=== PATIENT | female | born 1950 | race Caucasian/White ===

== ENCOUNTER 2016-09-28 10:58 | Emergency (ER) | payer MEDICARE, BC ==
[2016-09-28 11:16] VITALS: RESP 18
[2016-09-28] MEDS ORDERED: SODIUM CHLORIDE 0.9% 500 ML IV STA (11:55)
--- NOTE | 2016-09-28 12:08 | ED ---
Abdominal Pain HPI - General Chief Complaint: Abdominal Pain Stated Complaint: left side pain Time Seen by Provider: 09/28/16 11:55 Source: patient, RN notes reviewed Mode of arrival: ambulatory Limitations: no limitations - History of Present Illness Initial Comments: 66-year-old female presented emergency department for left flank pain, left back pain. Patient states that she got up in the middle the night and felt a pop in her back. She states it felt more internal than surface leg. She states she has pain if she twists the right and she if she bends forward or back. Patient denies any bowel bladder incontinence or retention. Denies any saddle anesthesias. Patient has no diarrhea no constipation denies any dysuria or hematuria. Patient states that she has a history of diverticulitis though she has no symptoms consistent with this at this time. Patient denies any fever or chills. No chest pain or shortness breath - Related Data Home Medications Medication Instructions Recorded Confirmed ALPRAZolam [Xanax] 0.5 mg PO TID PRN 09/28/16 09/28/16 Albuterol Sulfate [Proventil Hfa] 1 - 2 puff INHALATION RT-Q6H PRN 09/28/16 Celecoxib [CeleBREX] 200 mg PO DAILY 09/28/16 09/28/16 Ergocalciferol [Vitamin D2] 50,000 unit PO TU 09/28/16 09/28/16 Fluticasone/Salmeterol [Advair 1 puff PO RT-BID 09/28/16 09/28/16 500-50 Diskus] Furosemide [Lasix] 40 mg PO DAILY PRN 09/28/16 09/28/16 Montelukast Sodium [Singulair] 10 mg PO DAILY 09/28/16 09/28/16 Morphine Sulfate ER [Ms Contin 30 mg PO DAILY PRN 09/28/16 09/28/16 30Mg] Omeprazole [PriLOSEC] 40 mg PO BID 09/28/16 09/28/16 Rosuvastatin Calcium [Crestor] 40 mg PO DAILY 09/28/16 09/28/16 Tiotropium 18 Mcg/Puff [Spiriva] 1 cap INHALATION RT-DAILY 09/28/16 09/28/16 amLODIPine BESYLATE/BENAZEPRIL 1 cap PO DAILY 09/28/16 09/28/16 [Lotrel 10-20 mg Capsule] Allergies Allergy/AdvReac Type Severity Reaction Status Date / Time hydrocodone [From [place]] Allergy Dyspnea Verified 09/28/16 12:41 oxycodone [From OxyContin] Allergy Rash/Hives Verified 09/28/16 12:41 dust Allergy Unknown Uncoded 09/28/16 11:17 Review of Systems ROS Statement: Those systems with pertinent positive or pertinent negative responses have been documented in the HPI. ROS Other: All systems not noted in ROS Statement are negative. Past Medical History Past Medical History: COPD, Osteoarthritis (OA) Additional Past Medical History / Comment(s): diverticulitis chronic back pain History of Any Multi-Drug Resistant Organisms: None Reported Past Surgical History: Orthopedic Surgery, Tonsillectomy Additional Past Surgical History / Comment(s): knees Past Psychological History: No Psychological Hx Reported Smoking Status: Current every day smoker Past Alcohol Use History: None Reported Past Drug Use History: None Reported General Exam Limitations: no limitations General appearance: alert, in no apparent distress Head exam: Present: atraumatic, normocephalic, normal inspection Respiratory exam: Present: normal lung sounds bilaterally. Absent: respiratory distress, wheezes, rales, rhonchi, stridor Cardiovascular Exam: Present: regular rate, normal rhythm, normal heart sounds. Absent: systolic murmur, diastolic murmur, rubs, gallop, clicks GI/Abdominal exam: Present: soft, normal bowel sounds. Absent: distended, tenderness, guarding, rebound, rigid Back exam: Present: full ROM, paraspinal tenderness (Lower thoracic/lumbar). Absent: tenderness, CVA tenderness (R), CVA tenderness (L), vertebral tenderness Neurological exam: Present: alert, oriented X3, CN II-XII intact, reflexes normal. Absent: motor sensory deficit Skin exam: Present: warm, dry, intact, normal color. Absent: rash Course Vital Signs 09/28/16 09/28/16 11:13 14:00 Temperature 98.0 F Pulse Rate 94 82 Respiratory 18 18 Rate Blood Pressure 133/62 150/66 O2 Sat by Pulse 95 94 L Oximetry Medical Decision Making - Medical Decision Making 66-year-old female presented for left sided back pain. Patient CT does show large hiatal hernia the no evidence of acute diverticulitis. His pain is most likely related to muscle skeletal pain at this time it is worse with movement. Patient will be discharged at this time with close follow-up return parameters were discussed. - Lab Data Result diagrams: 09/28/16 12:00 09/28/16 12:00 Lab Results 09/28/16 09/28/16 09/28/16 Range/Units 12:00 12:00 14:20 WBC 14.4 H (3.8-10.6) k/uL RBC 4.95 (3.80-5.40) m/uL Hgb 13.6 (11.4-16.0) gm/dL Hct 42.7 (34.0-46.0) % MCV 86.3 (80.0-100.0) fL MCH 27.5 (25.0-35.0) pg MCHC 31.9 (31.0-37.0) g/dL RDW 14.7 (11.5-15.5) % Plt Count 355 (150-450) k/uL Neutrophils % 90 % Lymphocytes % 7 % Monocytes % 2 % Eosinophils % 0 % Basophils % 0 % Neutrophils # 12.9 H (1.3-7.7) k/uL Lymphocytes # 1.0 (1.0-4.8) k/uL Monocytes # 0.3 (0-1.0) k/uL Eosinophils # 0.1 (0-0.7) k/uL Basophils # 0.0 (0-0.2) k/uL Sodium 141 (137-145) mmol/L Potassium 3.4 L (3.5-5.1) mmol/L Chloride 101 (98-107) mmol/L Carbon Dioxide 26 (22-30) mmol/L Anion Gap 14 mmol/L BUN 17 (7-17) mg/dL Creatinine 1.10 H (0.52-1.04) mg/dL Est GFR (MDRD) Af Amer >60 (>60 ml/min/1.73 sqM) Est GFR (MDRD) Non-Af 50 (>60 ml/min/1.73 sqM) Glucose 133 H (74-99) mg/dL Calcium 9.1 (8.4-10.2) mg/dL Total Bilirubin 0.4 (0.2-1.3) mg/dL AST 19 (14-36) U/L ALT 34 (9-52) U/L Alkaline Phosphatase 142 H (38-126) U/L Total Protein 6.4 (6.3-8.2) g/dL Albumin 3.8 (3.5-5.0) g/dL Amylase 32 (30-110) U/L Lipase 29 (23-300) U/L Urine Color Yellow Urine Appearance Clear (Clear) Urine pH 6.0 (5.0-8.0) Ur Specific [place] 1.007 (1.001-1.035) Urine Protein Trace H (Negative) Urine Glucose (UA) Negative (Negative) Urine Ketones Negative (Negative) Urine Blood Trace H (Negative) Urine Nitrite Negative (Negative) Urine Bilirubin Negative (Negative) Urine Urobilinogen <2.0 (<2.0) mg/dL Ur Leukocyte Esterase Small H (Negative) Urine RBC 1 (0-5) /hpf Urine WBC 2 (0-5) /hpf Ur Squamous Epith Cells 1 (0-4) /hpf Urine Mucus Rare H (None) /hpf Disposition Clinical Impression: Back pain, Hiatal hernia Disposition: HOME SELF-CARE Condition: Stable Instructions: Back Pain (ED) Additional Instructions: Please return to the Emergency Department if symptoms worsen or any other concerns. Referrals: Hay Lipscomb DO [Primary Care Provider] - 1-2 days Time of Disposition: 15:16
[2016-09-28 12:34] LABS: Basophils % (A) 0 %; CH 27.7; CHCM 32.2; Eosinophils # (A) 0.1 k/uL (0-0.7); Eosinophils % (A) 0 %; HCT 42.7 % (34.0-46.0); HDW 2.36; HGB 13.6 gm/dL (11.4-16.0); Luc # (Auto) 0.06; Luc % (Auto) 0; Lymphocytes % (A) 7 %; MCH 27.5 pg (25.0-35.0); MCHC 31.9 g/dL (31.0-37.0); MCV 86.3 fL (80.0-100.0); Mean Platelet Volume 6.6; Monocytes # (A) 0.3 k/uL (0-1.0); Monocytes % (A) 2 %; Neutrophils # (A) 12.9 k/uL (1.3-7.7); Neutrophils % (A) 90 %; RBC 4.95 m/uL (3.80-5.40); RDW 14.7 % (11.5-15.5); WBC 14.4 k/uL (3.8-10.6); WBC (Perox) 13.86
[2016-09-28 12:44] LABS: ALT 34 U/L (9-52); AST 19 U/L (14-36); Alkaline Phosphatase 142 U/L (38-126); Amylase 32 U/L (30-110); Anion Gap 14 mmol/L; Blood Urea Nitrogen 17 mg/dL (7-17); Calcium 9.1 mg/dL (8.4-10.2); Carbon Dioxide 26 mmol/L (22-30); Chloride 101 mmol/L (98-107); Glucose 133 mg/dL (74-99); Non-African American GFR(MDRD) 50 (>60 ml/min/1.73 sqM); Potassium 3.4 mmol/L (3.5-5.1); Sodium 141 mmol/L (137-145); Total Bilirubin 0.4 mg/dL (0.2-1.3); Total Protein 6.4 g/dL (6.3-8.2)
[2016-09-28] MEDS ORDERED: RX INFO: IV CONTRAST WAS GIVEN 1 EACH MISC MISCELLANE PRN (14:05)
[2016-09-28 14:53] LABS: Appearance,Urine Clear (Clear); Bilirubin,Urine Negative (Negative); Glucose,Urine (UA) Negative (Negative); Ketones,Urine Negative (Negative); Leukocyte Esterase,Urine Small (Negative); Mucus,Urine Rare /hpf; Nitrite,Urine Negative (Negative); Particle Count 1453; Protein,Urine Trace (Negative); RBC,Urine 1 /hpf (0-5); Specific Gravity,Urine 1.007 (1.001-1.035); Squamous Epithelial Cell,Urine 1 /hpf (0-4); UA Billing (MACRO vs. MICRO) MICRO; Urobilinogen,Urine <2.0 mg/dL (<2.0); WBC,Urine 2 /hpf (0-5)
--- NOTE | 2016-09-28 15:08 | CT ---
EXAMINATION TYPE: CT abdomen pelvis w con DATE OF EXAM: 09/28/2016 COMPARISON: NONE HISTORY: Left sided pain, diverticulitis CT DLP: 1662.00 mGycm Automated exposure control for dose reduction was used. TECHNIQUE: Helical acquisition of images was performed from the lung bases through the pelvis. CONTRAST: Performed without Oral Contrast and with IV Contrast, patient injected with 100 ml mL of Omnipaque 30 0. FINDINGS: LUNG BASES: No significant abnormality is appreciated. LIVER/GB: There is a 10 mm hypodense focus in the medial right hepatic lobe which is most consistent with a cyst. A similar tiny hypodense focus is noted in the periphery of the left hepatic lobe. The g allbladder is unremarkable. There is a large sliding-type hiatal hernia. PANCREAS: No significant abnormality is seen. SPLEEN: No significant abnormality is seen. ADRENALS: Mild thickening is noted from the lateral limb of the left adrenal gland is of doubtful sig nificance. KIDNEYS: No significant abnormality is seen. No free intraperitoneal air is identified. There is moderate diastases rectus with a small fat filled umbilical hernia. RETROPERITONEAL ADENOPATHY: None visualized REPRODUCTIVE ORGANS: Unremarkable. URINARY BLADDER: No significant abnormality is seen. PELVIC ADENOPATHY: None visualized. OSSEOUS STRUCTURES: No significant abnormality is seen. BOWEL: There is no significant diverticulosis. No findings to indicate acute diverticulitis. IMPRESSION: 1. NO EVIDENCE OF ACUTE DIVERTICULITIS. 2. NO ACUTE OR ABNORMALITY IDENTIFIED. 3. LARGE HIATAL HERNIA.
[2016-09-28 15:35] VITALS: BP 136/60; PULSE 86; TEMP 98.1
== END 2016-09-28 15:40 | disposition home or self-care (01) ==
LOC: EC 10:58
DX: K44.9 Diaphragmatic hernia without obstruction or gangrene (principal); M54.9 Dorsalgia, unspecified; J44.9 Chronic obstructive pulmonary disease, unspecified; M19.90 Unspecified osteoarthritis, unspecified site; F17.200 Nicotine dependence, unspecified, uncomplicated; Z79.1 Long term (current) use of non-steroidal anti-inflammatories (NSAID); Z79.899 Other long term (current) drug therapy; Z88.5 Allergy status to narcotic agent; Z91.09 Other allergy status, other than to drugs and biological substances; Z87.19 Personal history of other diseases of the digestive system
CPT/HCPCS: 36415; 80053; 82150; 83690; 85025; 81001; 74177; 99284; 96360; 96361 ×2; Q9967

== ENCOUNTER 2024-01-14 05:50 | Inpatient (IN) | payer BC, MEDICARE ==
[2024-01-14] MEDS: IPRATROPIUM-ALBUTEROL 3 ML NEB INHALATION STA (06:25)
[2024-01-14] MEDS: methylPREDNISolone SOD SUCCI 125 MG/2 ML VIAL IV STA (06:41)
--- NOTE | 2024-01-14 06:41 | ED ---
Weakness HPI - General Chief complaint: Weakness Stated complaint: Difficulty Breathing, Exposure Time Seen by Provider: 01/14/24 05:59 Source: patient, EMS, RN notes reviewed Mode of arrival: EMS Limitations: no limitations - History of Present Illness Initial comments: This is a 73 year old female who presents to the emergency department for shortness of breath and weakness. Patient has been living in her car in her own driveway for the last couple of months. States that she is too weak and "lazy" to get out and go into her house. She subsequently remains in her car and only gets out to go to the restroom in her yard. She has a friend bring her food. It does not appear that she has been showering. She has a history of COPD and states that over the last several days her breathing has gotten much worse. States that she is a heavy smoker on top of the COPD. Does not do nebulizer treatments and only uses an inhaler as needed. Patient states that her largest reason for calling EMS today was because her breathing had gotten worse. Denies any chest pain. MD Complaint: generalized weakness - Related Data Home Medications Medication Instructions Recorded Confirmed No Known Home Medications 01/14/24 01/14/24 Allergies Allergy/AdvReac Type Severity Reaction Status Date / Time hydrocodone [From [place]] Allergy Dyspnea/benji Verified 01/14/24 07:33 sea oxycodone [From OxyContin] Allergy Rash/Hives Verified 01/14/24 07:33 dust Allergy Unknown Uncoded 01/14/24 05:53 Review of Systems ROS Statement: Those systems with pertinent positive or pertinent negative responses have been documented in the HPI. ROS Other: All systems not noted in ROS Statement are negative. Past Medical History Past Medical History: COPD, Osteoarthritis (OA) Additional Past Medical History / Comment(s): diverticulitis chronic back pain History of Any Multi-Drug Resistant Organisms: None Reported Past Surgical History: Orthopedic Surgery, Tonsillectomy Additional Past Surgical History / Comment(s): knees Past Psychological History: No Psychological Hx Reported Smoking Status: Current every day smoker Past Alcohol Use History: None Reported Past Drug Use History: None Reported General Exam Limitations: no limitations General appearance: alert, in no apparent distress Head exam: Present: atraumatic, normocephalic, normal inspection Respiratory exam: Present: wheezes, decreased breath sounds, prolonged expiratory Cardiovascular Exam: Present: regular rate, normal rhythm, normal heart sounds. Absent: systolic murmur, diastolic murmur, rubs, gallop, clicks Neurological exam: Present: alert, oriented X3, CN II-XII intact Psychiatric exam: Present: normal affect, normal mood Course Vital Signs 01/14/24 01/14/24 01/14/24 06:26 06:40 06:42 Temperature Pulse Rate 96 100 57 L Respiratory 20 Rate Blood Pressure 115/91 O2 Sat by Pulse 100 Oximetry 01/14/24 08:29 Temperature 97.5 F L Pulse Rate 75 Respiratory 17 Rate Blood Pressure 123/77 O2 Sat by Pulse 96 Oximetry Medical Decision Making - Medical Decision Making This is a 73-year-old female who presents to the emergency department for shortness of breath and weakness. Was pt. sent in by a medical professional or institution? @ -No Did you speak to anyone other than the patient for history? @ -No Did you review nursing and triage notes? @ -Yes, and I agree, it is accurate with regards to the patient's symptoms. Were old charts reviewed? @ -No Differential Diagnosis? @ -Differential Dyspnea: Coronary syndrome, arrhythmia, tamponade, asthma, COPD, pulmonary embolism, pneumonia, pneumothorax, pulmonary effusion, anaphylaxis, diabetic ketoacidosis, flailed chest, pulmonary contusion, diaphragmatic rupture, anemia, neuromuscular, this is not meant to be an all-inclusive list. EKG interpreted by me (3pts min.)? @ -EKG interpreted by me demonstrating the following: Possible atrial fibrillation. Ventricular rate 93 bpm, QRS duration 76 ms, QTc 475 ms. X-rays interpreted by me (1pt min.)? @ -Chest x-ray obtained. My interpretation identifies bilateral pleural effusions. CT interpreted by me (1pt min.)? @ -CTA of the chest obtained. My interpretation identifies bilateral pleural effusions. U/S interpreted by me (1pt. min.)? @ -Not obtained What testing was considered but not performed? (CT, X-rays, U/S, labs)? Why? @ -None What meds were considered but not given? Why? @ -None Did you discuss the management of the patient with other professionals? @ -Yes, Dr. Call, who accepts the patient for admission. Did you reconcile home meds? @ -Yes - patient takes no medication Was smoking cessation discussed for >3mins.? @ -I discussed smoking cessation for greater than 3 minutes. The risk of smoking were discussed with the patient including but not limited to risks of cancer, stroke, coronary artery disease and COPD. Also discussed with patient were multiple methods of quitting smoking. Lastly we discussed the financial cost of smoking. Was critical care preformed (if so, how long)? @ -Yes, >35 minutes Were there social determinants of health that impacted care today? How? (Homelessness, low income, unemployed, alcoholism, drug addiction, transportation, low edu. Level, literacy, decrease access to med. care, [facility], rehab)? @ -No Was there de-escalation of care discussed even if they declined? (Discuss DNR or withdrawal of care, Hospice)? @ -No What co-morbidities impacted this encounter? (DM, HTN, Smoking, COPD, CAD, Cancer, CVA, Hep., AIDS, mental health diagnosis, sleep apnea, morbid obesity)? @ -COPD, smoking Was patient admitted / discharged? @ -Admitted. Lab work demonstrates leukocytosis with a white blood cell count of 26.3. She has mild hypokalemia with a potassium of 3.3. There is also hypoglycemia with a glucose of 70. Lactic acid elevated at 2.8. BNP elevated at 24,800. D-dimer elevated at 4.23. COVID, influenza, and RSV testing negative. Urinalysis is questionably suggestive of infection and urine was sent for culture. Chest x-ray demonstrates moderate right and small left pleural effusions with adjacent atelectasis and/or consolidation. CTA of the chest demonstrates a single tiny segmental branch PE located in the right lower lobe. No heart strain is identified. CHF with pulmonary vascular congestion is identified with moderate right and small left pleural effusions. There is also collapse of the right lower lobe adjacent to the right pleural effusion. Workup at this point suggests a multitude of issues including CHF exacerbation, COPD exacerbation, and right lower lobe PE. Based on the leukocytosis there could be an underlying pneumonia as well. 40 mg of IV Lasix administered. She was given a DuoNeb breathing treatment, 1 g of magnesium sulfate, and a loading dose of 125 mg Solu-Medrol. 40 mEq of K-Dur given for the hypokalemia. She was started on high intensity heparin protocol for the PE. Blood and sputum cultures obtained and she was started on the pneumonia protocol as well with azithromycin and ceftriaxone. Echocardiogram ordered for further evaluation of the CHF and for the PE. Consult placed for pulmonology and cardiology. Case discussed with ED attending Dr. Menezes. Of note, patient does not take any medications or follow-up with any medical providers. 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 Undiagnosed new problem with uncertain prognosis? @ -None Drug Therapy requiring intensive monitoring for toxicity (Heparin, Nitro, Insulin, Cardizem)? @ -Heparin Were any procedures done? @ -None Diagnosis/symptom? @ -CHF exacerbation, COPD exacerbation Acute, or Chronic, or Acute on Chronic? @ -Acute on chronic Uncomplicated (without systemic symptoms) or Complicated (systemic symptoms)? @ -Complicated Side effects of treatment? @ -None Exacerbation, Progression, or Severe Exacerbation] @ -Severe exacerbation Poses a threat to life or bodily function? @ -Yes, both can lead to . Diagnosis/symptom? @ -Right lower lobe PE Acute, or Chronic, or Acute on Chronic? @ -Acute Uncomplicated (without systemic symptoms) or Complicated (systemic symptoms)? @ -Complicated Side effects of treatment? @ -None Exacerbation, Progression, or Severe Exacerbation] @ -Not applicable Poses a threat to life or bodily function? @ -Yes, can lead to - Lab Data Result diagrams: 01/14/24 06:38 01/14/24 06:38 Lab Results 01/14/24 01/14/24 01/14/24 Range/Units 06:38 06:38 06:38 WBC 26.3 H (3.8-10.6) k/uL RBC 4.71 (3.80-5.40) m/uL Hgb 12.4 (11.4-16.0) gm/dL Hct 39.7 (34.0-46.0) % MCV 84.2 (80.0-100.0) fL MCH 26.2 (25.0-35.0) pg MCHC 31.2 (31.0-37.0) g/dL RDW 15.5 (11.5-15.5) % Plt Count 599 H (150-450) k/uL MPV 7.2 Neutrophils % 90 % Lymphocytes % 5 % Monocytes % 4 % Eosinophils % 0 % Basophils % 0 % Neutrophils # 23.8 H (1.3-7.7) k/uL Lymphocytes # 1.3 (1.0-4.8) k/uL Monocytes # 1.0 (0-1.0) k/uL Eosinophils # 0.1 (0-0.7) k/uL Basophils # 0.1 (0-0.2) k/uL Hypochromasia Moderate PT 11.7 (10.0-12.5) sec INR 1.1 (<1.2) APTT 24.0 (22.0-30.0) sec D-Dimer 4.23 H (<0.60) mg/L FEU Sodium 143 (137-145) mmol/L Potassium 3.3 L (3.5-5.1) mmol/L Chloride 103 (98-107) mmol/L Carbon Dioxide 33 H (22-30) mmol/L Anion Gap 7 mmol/L BUN 13 (7-17) mg/dL Creatinine 0.97 (0.52-1.04) mg/dL Est GFR (CKD-EPI)AfAm 68 (>60 ml/min/1.73 sqM) Est GFR (CKD-EPI)NonAf 59 (>60 ml/min/1.73 sqM) Glucose 70 L (74-99) mg/dL Lactic Ac Sepsis Rflx Plasma Lactic Acid [place] (0.7-2.0) mmol/L Calcium 8.5 (8.4-10.2) mg/dL Magnesium 1.7 (1.6-2.3) mg/dL Total Bilirubin 0.4 (0.2-1.3) mg/dL AST 23 (14-36) U/L ALT 9 (4-34) U/L Alkaline Phosphatase 142 H (38-126) U/L Creatine Kinase 95 (30-135) U/L Troponin I (0.000-0.034) ng/mL C-Reactive Protein (<1.0) mg/dL NT-Pro-B Natriuret Pep 63147 pg/mL Total Protein 6.0 L (6.3-8.2) g/dL Albumin 3.1 L (3.5-5.0) g/dL Urine Color Urine Appearance (Clear) Urine pH (5.0-8.0) Ur Specific [place] (1.001-1.035) Urine Protein (Negative) Urine Glucose (UA) (Negative) Urine Ketones (Negative) Urine Blood (Negative) Urine Nitrite (Negative) Urine Bilirubin (Negative) Urine Urobilinogen (<2.0) mg/dL Ur Leukocyte Esterase (Negative) Urine RBC (0-5) /hpf Urine WBC (0-5) /hpf Ur Squamous Epith Cells (0-4) /hpf Urine Bacteria (None) /hpf Urine Mucus (None) /hpf Influenza Type A (PCR) (Not Detectd) Influenza Type B (PCR) (Not Detectd) RSV (PCR) (Not Detectd) SARS-CoV-2 (PCR) (Not Detectd) 01/14/24 01/14/24 01/14/24 Range/Units 06:38 06:38 06:51 WBC (3.8-10.6) k/uL RBC (3.80-5.40) m/uL Hgb (11.4-16.0) gm/dL Hct (34.0-46.0) % MCV (80.0-100.0) fL MCH (25.0-35.0) pg MCHC (31.0-37.0) g/dL RDW (11.5-15.5) % Plt Count (150-450) k/uL MPV Neutrophils % % Lymphocytes % % Monocytes % % Eosinophils % % Basophils % % Neutrophils # (1.3-7.7) k/uL Lymphocytes # (1.0-4.8) k/uL Monocytes # (0-1.0) k/uL Eosinophils # (0-0.7) k/uL Basophils # (0-0.2) k/uL Hypochromasia PT (10.0-12.5) sec INR (<1.2) APTT (22.0-30.0) sec D-Dimer (<0.60) mg/L FEU Sodium (137-145) mmol/L Potassium (3.5-5.1) mmol/L Chloride (98-107) mmol/L Carbon Dioxide (22-30) mmol/L Anion Gap mmol/L BUN (7-17) mg/dL Creatinine (0.52-1.04) mg/dL Est GFR (CKD-EPI)AfAm (>60 ml/min/1.73 sqM) Est GFR (CKD-EPI)NonAf (>60 ml/min/1.73 sqM) Glucose (74-99) mg/dL Lactic Ac Sepsis Rflx Plasma Lactic Acid [place] 2.8 H* (0.7-2.0) mmol/L Calcium (8.4-10.2) mg/dL Magnesium (1.6-2.3) mg/dL Total Bilirubin (0.2-1.3) mg/dL AST (14-36) U/L ALT (4-34) U/L Alkaline Phosphatase (38-126) U/L Creatine Kinase (30-135) U/L Troponin I 0.028 (0.000-0.034) ng/mL C-Reactive Protein (<1.0) mg/dL NT-Pro-B Natriuret Pep pg/mL Total Protein (6.3-8.2) g/dL Albumin (3.5-5.0) g/dL Urine Color Urine Appearance (Clear) Urine pH (5.0-8.0) Ur Specific [place] (1.001-1.035) Urine Protein (Negative) Urine Glucose (UA) (Negative) Urine Ketones (Negative) Urine Blood (Negative) Urine Nitrite (Negative) Urine Bilirubin (Negative) Urine Urobilinogen (<2.0) mg/dL Ur Leukocyte Esterase (Negative) Urine RBC (0-5) /hpf Urine WBC (0-5) /hpf Ur Squamous Epith Cells (0-4) /hpf Urine Bacteria (None) /hpf Urine Mucus (None) /hpf Influenza Type A (PCR) Not Detected (Not Detectd) Influenza Type B (PCR) Not Detected (Not Detectd) RSV (PCR) Not Detected (Not Detectd) SARS-CoV-2 (PCR) Not Detected (Not Detectd) 01/14/24 01/14/24 01/14/24 Range/Units 07:20 08:15 08:15 WBC (3.8-10.6) k/uL RBC (3.80-5.40) m/uL Hgb (11.4-16.0) gm/dL Hct (34.0-46.0) % MCV (80.0-100.0) fL MCH (25.0-35.0) pg MCHC (31.0-37.0) g/dL RDW (11.5-15.5) % Plt Count (150-450) k/uL MPV Neutrophils % % Lymphocytes % % Monocytes % % Eosinophils % % Basophils % % Neutrophils # (1.3-7.7) k/uL Lymphocytes # (1.0-4.8) k/uL Monocytes # (0-1.0) k/uL Eosinophils # (0-0.7) k/uL Basophils # (0-0.2) k/uL Hypochromasia PT (10.0-12.5) sec INR (<1.2) APTT (22.0-30.0) sec D-Dimer (<0.60) mg/L FEU Sodium (137-145) mmol/L Potassium (3.5-5.1) mmol/L Chloride (98-107) mmol/L Carbon Dioxide (22-30) mmol/L Anion Gap mmol/L BUN (7-17) mg/dL Creatinine (0.52-1.04) mg/dL Est GFR (CKD-EPI)AfAm (>60 ml/min/1.73 sqM) Est GFR (CKD-EPI)NonAf (>60 ml/min/1.73 sqM) Glucose (74-99) mg/dL Lactic Ac Sepsis Rflx Y Plasma Lactic Acid [place] (0.7-2.0) mmol/L Calcium (8.4-10.2) mg/dL Magnesium (1.6-2.3) mg/dL Total Bilirubin (0.2-1.3) mg/dL AST (14-36) U/L ALT (4-34) U/L Alkaline Phosphatase (38-126) U/L Creatine Kinase (30-135) U/L Troponin I (0.000-0.034) ng/mL C-Reactive Protein 2.0 H (<1.0) mg/dL NT-Pro-B Natriuret Pep pg/mL Total Protein (6.3-8.2) g/dL Albumin (3.5-5.0) g/dL Urine Color Colorless Urine Appearance Cloudy H (Clear) Urine pH 6.5 (5.0-8.0) Ur Specific [place] 1.014 (1.001-1.035) Urine Protein Trace H (Negative) Urine Glucose (UA) Negative (Negative) Urine Ketones Negative (Negative) Urine Blood Small H (Negative) Urine Nitrite Negative (Negative) Urine Bilirubin Negative (Negative) Urine Urobilinogen <2.0 (<2.0) mg/dL Ur Leukocyte Esterase Large H (Negative) Urine RBC 5 (0-5) /hpf Urine WBC 17 H (0-5) /hpf Ur Squamous Epith Cells <1 (0-4) /hpf Urine Bacteria Rare H (None) /hpf Urine Mucus Rare H (None) /hpf Influenza Type A (PCR) (Not Detectd) Influenza Type B (PCR) (Not Detectd) RSV (PCR) (Not Detectd) SARS-CoV-2 (PCR) (Not Detectd) - Radiology Data Radiology results: report reviewed, image reviewed Critical Care Time Critical Care Time: Yes Critical Care Time: >35 minutes Disposition Clinical Impression: COPD exacerbation, CHF exacerbation, Pulmonary embolism on right, Nicotine dependence Disposition: ADMITTED IP TO THIS HOSP Referrals: None,Stated [Primary Care Provider] - 1-2 days
[2024-01-14] MEDS: MAGNESIUM SULFATE-D5W PMX 1 GM in DEXTROSE/WATER 1 100ML.BAG IVPB ONE (06:44)
[2024-01-14] MEDS: SODIUM CHLORIDE 0.9% 1,000 ML IV STA (06:48)
[2024-01-14 07:03] LABS: Basophils # (A) 0.1 k/uL (0-0.2); Basophils % (A) 0 %; Eosinophils # (A) 0.1 k/uL (0-0.7); Eosinophils % (A) 0 %; HCT 39.7 % (34.0-46.0); HGB 12.4 gm/dL (11.4-16.0); Hypochromasia Moderate; Lymphocytes # (A) 1.3 k/uL (1.0-4.8); Lymphocytes % (A) 5 %; MCH 26.2 pg (25.0-35.0); MCHC 31.2 g/dL (31.0-37.0); MCV 84.2 fL (80.0-100.0); Mean Platelet Volume 7.2; Monocytes % (A) 4 %; Neutrophils # (A) 23.8 k/uL (1.3-7.7); Neutrophils % (A) 90 %; Platelet Count 599 k/uL (150-450); RBC 4.71 m/uL (3.80-5.40); RDW 15.5 % (11.5-15.5); WBC 26.3 k/uL (3.8-10.6)
[2024-01-14 07:08] LABS: INR 1.1 (<1.2); Prothrombin Time 11.7 sec (10.0-12.5)
[2024-01-14 07:13] LABS: ALT 9 U/L (4-34); AST 23 U/L (14-36); African American GFR (CKD) 68 (>60 ml/min/1.73 sqM); Albumin 3.1 g/dL (3.5-5.0); Alkaline Phosphatase 142 U/L (38-126); Anion Gap 7 mmol/L; Blood Urea Nitrogen 13 mg/dL (7-17); Calcium 8.5 mg/dL (8.4-10.2); Carbon Dioxide 33 mmol/L (22-30); Chloride 103 mmol/L (98-107); Creatine Kinase 95 U/L (30-135); Glucose 70 mg/dL (74-99); Magnesium 1.7 mg/dL (1.6-2.3); Non-African American GFR(CKD) 59 (>60 ml/min/1.73 sqM); Potassium 3.3 mmol/L (3.5-5.1); Sodium 143 mmol/L (137-145); Total Bilirubin 0.4 mg/dL (0.2-1.3)
[2024-01-14 07:21] LABS: NT-Pro-B-Type Natriuretic Pept 24800 pg/mL
[2024-01-14] MEDS: POTASSIUM CHLORIDE ER 20 MEQ TAB.ER PO STA (08:01)
[2024-01-14] MEDS: FUROSEMIDE 10 MG/ML 4 ML VIAL IV STA (08:02)
[2024-01-14 08:47] LABS: Appearance,Urine Cloudy (Clear); Bacteria,Urine Rare /hpf; Bilirubin,Urine Negative (Negative); Blood,Urine Small (Negative); Color,Urine Colorless; Glucose,Urine (UA) Negative (Negative); Ketones,Urine Negative (Negative); Leukocyte Esterase,Urine Large (Negative); Mucus,Urine Rare /hpf; Nitrite,Urine Negative (Negative); PH, Urine 6.5 (5.0-8.0); Protein,Urine Trace (Negative); RBC,Urine 5 /hpf (0-5); Specific Gravity,Urine 1.014 (1.001-1.035); Squamous Epithelial Cell,Urine <1 /hpf (0-4); Urobilinogen,Urine <2.0 mg/dL (<2.0); WBC,Urine 17 /hpf (0-5)
--- NOTE | 2024-01-14 08:47 | XR ---
EXAMINATION TYPE: XR chest 2V DATE OF EXAM: 01/14/2024 COMPARISON: None HISTORY: 73-year-old female with weakness TECHNIQUE: AP and lateral views FINDINGS: The heart is upper limits of normal in size. Hyperinflation. Diffuse interstitial opacities. Moderate right and small left pleural effusions with adjacent basilar opacity. Suspected bilateral full-thick ness rotator cuff tears. IMPRESSION: Moderate right and small left pleural effusions with adjacent atelectasis and/or consolidation. Possi ble CHF with pulmonary vascular congestion superimposed on COPD. [facility], , 01/14/2024 8:44 AM
--- NOTE | 2024-01-14 08:52 | CT ---
EXAMINATION TYPE: CT chest angio for PE DATE OF EXAM: 01/14/2024 COMPARISON: Radiograph same day HISTORY: 73-year-old female SOB TECHNIQUE: CT of the chest with IV Contrast, patient injected with 100 mL of Isovue 370. Coronal/sag ittal MIP reconstructions performed. CT DLP: 337.3 mGycm Automated exposure control for dose reduction was used. FINDINGS: Heart is upper limits of normal in size without pericardial effusion. No flattening of the interventr icular septum though there is refluxing contrast into the hepatic veins. Mild atherosclerotic arch calcifications with conventional arch vessel branching anatomy. Borderline to mildly enlarged 1.2 cm lower right paratracheal lymph node. 8 mm AP window lymph node. 1 cm left hilar lymph node. Probably reactive. Satisfactory opacification the pulmonary arterial system with a tiny segmental branch linear embolus within the right lower lobe, axial image 91 and coronal image 98. No large central or lobar branch em bolus is seen. Generalized anasarca change. Moderate right and small left pleural effusions. Septal lines and scatte red mild groundglass. There is right lower lobe are volume loss and opacification adjacent to the pat ient's right-sided effusion. Moderate to large hiatal hernia involving half of the stomach in the lower chest. The fluid within th e distal esophagus could reflect gastroesophageal reflux. Visualized upper abdomen shows diffuse thickening of the left adrenal gland without discrete nodulari ty and moderate apical scarring calcifications in the abdominal aorta. Bones: Some bridging anterior endplate spondylosis midthoracic spine. IMPRESSION: 1. A SINGLE TINY SEGMENTAL BRANCH PE LOCATED WITHIN THE RIGHT LOWER LOBE. NO RIGHT HEART STRAIN. 2. CHF with pulmonary vascular congestion (characterized by generalized anasarca, borderline heart si ze, scattered septal lines and groundglass, as well as moderate right and small left pleural effusion s). 3. Collapse of the right lower lobe adjacent to the right pleural effusion. 4. Moderate to large hiatal hernia involving half of the stomach in the lower chest. Fluid in the dis carlyle esophagus probably due to GERD. Critical findings called to Dr. Menezes in the ER at 8:44 AM. [facility], , 01/14/2024 8:50 AM
[2024-01-14] MEDS ORDERED: PNEUMONIA PROTOCOL UTILIZED 1 EACH MISC PO PRN (08:59)
[2024-01-14] MEDS ORDERED: IPRATROPIUM-ALBUTEROL 3 ML NEB INHALATION PRN (08:59)
[2024-01-14] MEDS ORDERED: HEPARIN SODIUM 1,000 UN/ML (10ML VL) IV PRN (09:01)
[2024-01-14] MEDS ORDERED: NALOXONE 0.4 MG/ML 1 ML VIAL IV PRN (09:06)
[2024-01-14] MEDS ORDERED: ONDANSETRON 4 MG/2 ML VIAL IVP PRN (09:06)
[2024-01-14] MEDS: AZITHROMYCIN 500 MG in SODIUM CHLORIDE 0.9% 250 ML IVPB STA (09:44)
[2024-01-14] MEDS: HEPARIN SODIUM 1,000 UN/ML (10ML VL) IV ONE (10:01)
[2024-01-14] MEDS: HEPARIN SOD,PORK IN 0.45% NACL 25,000 UNIT in 0.45% NACL 1 250ML.BAG IV SCH (10:02)
[2024-01-14] MEDS: PANTOPRAZOLE 40 MG/10 ML VIAL IVP STA (11:54)
[2024-01-14] MEDS: IPRATROPIUM-ALBUTEROL 3 ML NEB INHALATION SCH (11:55)
[2024-01-14] MEDS: methylPREDNISolone SOD SUCCI 125 MG/2 ML VIAL IV SCH (11:56)
[2024-01-14] MEDS: FAMOTIDINE 20 MG/2 ML VIAL IV STA (12:00)
--- NOTE | 2024-01-14 12:27 | P.HPIM ---
History of Present Illness H&P Date: 01/14/24 History of present illness; patient is 73-year-old lady with past medical history significant for COPD who presented the ER because of shortness of breath and weakness. Patient is very poor historian, apparently patient has been living out of her car in her driveway. Patient is not going to her house and uses her car and the restroom in the yard. Patient states that she has been feeling sick for the last few days. Patient complaining of shortness of breath at rest. Denies any chest pain. There is no complaint of fever or chills. Patient denies any cough. Patient complains of generalized weakness. Denies any nausea, vomit abdominal pain. Because of worsening shortness of breath, EMS was called and patient brought to the ER Initial lab work done in the ER showed WBC 26.3, hemoglobin 12.4, platelet count 599, INR 1.1, D-dimer 4.23, sodium 143, potassium 3.3, carbon dioxide 33, la ctate 2.8, AST 23, ALT 9, alk phos 142, proBNP 24 800 UA showed large amount of leukocyte Estrace, urine WBC 17, urine nitrite negative Influenza A not detected Influenza B not detected RSV not detected COVID-19 not detected Chest x-ray done in the ER showed moderate right and small left pleural effusion with adjacent atelectasis or consolidation. Possible CHF with pulm vascular congestion CTA chest done showed a single tiny segmental branch PE. CHF with pulmonary congestion. Collapse the right lower lobe adjacent to the right pleural effusion Moderate to large hiatal hernia involving half of the stomach in the lower chest Patient admitted to internal medicine service REVIEW OF SYSTEMS: CONSTITUTIONAL: As mentioned above HEENT: No recent visual problems or hearing problems. Denied any sore throat. CARDIOVASCULAR: As mentioned above PULMONARY: As mentioned above GASTROINTESTINAL: No diarrhea, no nausea, no vomiting, no abdominal pain. NEUROLOGICAL: No headaches, no weakness, no numbness. HEMATOLOGICAL: Denies any bleeding or petechiae. GENITOURINARY: Denies any burning micturition, frequency, or urgency. MUSCULOSKELETAL/RHEUMATOLOGICAL: Denies any joint pain, swelling, or any muscle pain. ENDOCRINE: Denies any polyuria or polydipsia. The rest of the 14-point review of systems is negative. PHYSICAL EXAMINATION: GENERAL: The patient is alert and oriented x3, chronically ill looking. Poor hygiene HEENT: Pupils are round and equally reacting to light. EOMI. No scleral icterus. No conjunctival pallor. Normocephalic, atraumatic. No pharyngeal erythema. No thyromegaly. CARDIOVASCULAR: S1 and S2 present. No murmurs, rubs, or gallops. PULMONARY: Coarse breath sound bilaterally, bilateral expiratory wheeze audible ABDOMEN: Soft, nontender, nondistended, normoactive bowel sounds. No palpable organomegaly. MUSCULOSKELETAL: No joint swelling or deformity. EXTREMITIES: No cyanosis, clubbing, or pedal edema. NEUROLOGICAL: Gross neurological examination did not reveal any focal deficits. SKIN: No rashes. Assessment and plan Acute hypoxic respiratory failure Bacterial pneumonia Bilateral pleural effusion Acute COPD exacerbation Acute CHF Lactic acidosis PE Monitor vital signs Monitor CBC Monitor CMP Continue telemetry monitoring Ordered blood cultures Ordered IV Rocephin and azithromycin Ordered pharmacy dose heparin Ordered ultrasound of lower extremities Ordered strict I's and O's, daily weights, continue Lasix 40 daily Ordered 2D echo Consult cardiology Consult pulmonary Labs and medication were reviewed.. Continue same treatment. Continue with symptomatic treatment. Resume home medication. Monitor labs and vitals. DVT and GI prophylaxis. Further recommendations as per clinical course of the patient Dictation was produced using [employer] dictation software. please excuse any grammatical, word or spelling errors. Past Medical History Past Medical History: COPD, Osteoarthritis (OA) Additional Past Medical History / Comment(s): diverticulitis chronic back pain History of Any Multi-Drug Resistant Organisms: None Reported Past Surgical History: Orthopedic Surgery, Tonsillectomy Additional Past Surgical History / Comment(s): knees Past Psychological History: No Psychological Hx Reported Smoking Status: Current every day smoker Past Alcohol Use History: None Reported Past Drug Use History: None Reported Medications and Allergies Home Medications Medication Instructions Recorded Confirmed Type No Known Home Medications 01/14/24 01/14/24 History Allergies Allergy/AdvReac Type Severity Reaction Status Date / Time hydrocodone [From [place]] Allergy Dyspnea/benji Verified 01/14/24 07:33 sea oxycodone [From OxyContin] Allergy Rash/Hives Verified 01/14/24 07:33 dust Allergy Unknown Uncoded 01/14/24 05:53 Physical Exam Vitals: Vital Signs Temp Pulse Resp BP Pulse Ox 01/14/24 12:06 101 H 01/14/24 11:59 99 01/14/24 11:56 93 01/14/24 11:34 92 18 111/88 99 01/14/24 10:00 97.6 F 84 18 105/64 100 01/14/24 08:29 97.5 F L 75 17 123/77 96 01/14/24 06:42 57 L 20 115/91 100 01/14/24 06:40 100 01/14/24 06:26 96 Intake and Output 01/13/24 01/14/24 01/14/24 22:59 06:59 14:59 Output Total 1000 Balance -1000 Output: Urine 1000 Other: Weight 90.718 kg Results CBC & Chem 7: 01/14/24 06:38 01/14/24 06:38 Labs: Abnormal Lab Results - Last 24 Hours (Table) 01/14/24 01/14/24 01/14/24 Range/Units 06:38 06:38 06:38 WBC 26.3 H (3.8-10.6) k/uL Plt Count 599 H (150-450) k/uL Neutrophils # 23.8 H (1.3-7.7) k/uL D-Dimer 4.23 H (<0.60) mg/L FEU Potassium 3.3 L (3.5-5.1) mmol/L Carbon Dioxide 33 H (22-30) mmol/L Glucose 70 L (74-99) mg/dL Plasma Lactic Acid Yunier (0.7-2.0) mmol/L Alkaline Phosphatase 142 H (38-126) U/L C-Reactive Protein (<1.0) mg/dL Total Protein 6.0 L (6.3-8.2) g/dL Albumin 3.1 L (3.5-5.0) g/dL Urine Appearance (Clear) Urine Protein (Negative) Urine Blood (Negative) Ur Leukocyte Esterase (Negative) Urine WBC (0-5) /hpf Urine Bacteria (None) /hpf Urine Mucus (None) /hpf 01/14/24 01/14/24 01/14/24 Range/Units 06:38 08:15 08:15 WBC (3.8-10.6) k/uL Plt Count (150-450) k/uL Neutrophils # (1.3-7.7) k/uL D-Dimer (<0.60) mg/L FEU Potassium (3.5-5.1) mmol/L Carbon Dioxide (22-30) mmol/L Glucose (74-99) mg/dL Plasma Lactic Acid Yunier 2.8 H* (0.7-2.0) mmol/L Alkaline Phosphatase (38-126) U/L C-Reactive Protein 2.0 H (<1.0) mg/dL Total Protein (6.3-8.2) g/dL Albumin (3.5-5.0) g/dL Urine Appearance Cloudy H (Clear) Urine Protein Trace H (Negative) Urine Blood Small H (Negative) Ur Leukocyte Esterase Large H (Negative) Urine WBC 17 H (0-5) /hpf Urine Bacteria Rare H (None) /hpf Urine Mucus Rare H (None) /hpf
[2024-01-14] MEDS: METOPROLOL SUCCINATE (ER) 25 MG TAB.ER.24H PO SCH (13:09)
[2024-01-14] MEDS: FUROSEMIDE 10 MG/ML 4 ML VIAL IV SCH (13:09)
[2024-01-14] MEDS: SPIRONOLACTONE 25 MG TAB PO SCH (13:10)
--- NOTE | 2024-01-14 13:14 | P.CNPUL ---
History of Present Illness Consult date: 01/14/24 Requesting physician: Stew Call Reason for consult: dyspnea, pulmonary embolism, abnormal CXR/CT, other Chief complaint: Weakness and shortness of breath. History of present illness: Pulmonary consult dated January 14, 2024. 73-year-old female who is seen in the emergency department, room 26. The patient apparently presents, via EMS. She apparently came in for shortness of breath and weakness. She apparently has been living in her car, for months. She states that she uses the bathroom, in the bushes, and feels like she is too weak or lazy to go to her house. She apparently does own a house. In addition, she has been apparently warming cans of chicken noodle soup, on the dashboard, allowing the son, the heat the soup. She appears not to be particularly clean, and has not showered. She has significant lower extremity chronic venous stasis changes, and significant lower extremity edema. She is currently on 2 L of oxygen. She is getting saline at 75 cc an hour. He has been given Rocephin and azithromycin. Will check a procalcitonin level and an N-terminal proBNP. Her chest x-ray is consistent with CHF, she was also found to have a small pulmonary embolism, in the right lower lobe. She has bilateral right greater than left effusions as well. White count 26.3, hemoglobin 12.4, hematocrit 39.7, platelet count 599,000. D-dimer was 4.23. Sodium 143, potassium 3.3, chlorides 103, CO2 33, BUN 13, creatinine 0.97. Lactic acid was 2.8. N-terminal proBNP was 24,800. Procalcitonin level is pending. Urine is cloudy, with trace protein. Blood is small. Leukocyte esterases large positive. There are 17 WBCs. There is rare bacteria. She tested negative for influenza, RSV, and coronavirus. As mentioned, x-rays, and scans reveal evidence of cardiomegaly, CHF, bilateral effusions, right greater than left, and a small right lower lobe pulmonary embolism. Review of Systems REVIEW OF SYSTEMS: CONSTITUTIONAL: Weakness. NEUROLOGIC: [ Negative.] HEENT: [ Negative.] CARDIAC: [Negative.] PULMONARY: Shortness of breath. GI: [Negative.] : [Negative.] RHEUMATOLOGIC: [ Negative.] IMMUNOLOGIC: [ Negative.] ENDOCRINE: [Negative. ] DERMATOLOGIC: [Negative.] Past Medical History Past Medical History: COPD, Osteoarthritis (OA) Additional Past Medical History / Comment(s): diverticulitis chronic back pain History of Any Multi-Drug Resistant Organisms: None Reported Past Surgical History: Orthopedic Surgery, Tonsillectomy Additional Past Surgical History / Comment(s): knees Past Psychological History: No Psychological Hx Reported Smoking Status: Current every day smoker Past Alcohol Use History: None Reported Past Drug Use History: None Reported Medications and Allergies Home Medications Medication Instructions Recorded Confirmed Type No Known Home Medications 01/14/24 01/14/24 History Allergies Allergy/AdvReac Type Severity Reaction Status Date / Time hydrocodone [From [place]] Allergy Dyspnea/benji Verified 01/14/24 07:33 sea oxycodone [From OxyContin] Allergy Rash/Hives Verified 01/14/24 07:33 dust Allergy Unknown Uncoded 01/14/24 05:53 Physical Exam Osteopathic Statement: *. No significant issues noted on an osteopathic structural exam other than those noted in the History and Physical/Consult. Vitals: Vital Signs Temp Pulse Resp BP Pulse Ox 01/14/24 12:06 101 H 01/14/24 11:59 99 01/14/24 11:56 93 01/14/24 11:34 92 18 111/88 99 01/14/24 10:00 97.6 F 84 18 105/64 100 01/14/24 08:29 97.5 F L 75 17 123/77 96 01/14/24 06:42 57 L 20 115/91 100 01/14/24 06:40 100 01/14/24 06:26 96 Intake and Output 01/13/24 01/14/24 01/14/24 22:59 06:59 14:59 Output Total 1000 Balance -1000 Output: Urine 1000 Other: Weight 90.718 kg No acute distress, oriented 3. The patient looks much older than her stated age. HEENT examination is grossly unremarkable. Mucous membranes are moist. No oral lesions. Neck supple. Full range of motion. No adenopathy thyromegaly or neck vein distention. Cardiovascular examination reveals regular rhythm rate. S1-S2 normal. No S3 or S4. No discernible murmur noted. Lungs reveal bilateral crackles. No wheezes or rhonchi. Breath sounds equal. She is on 2 L. Abdomen soft bowel sounds are heard. No masses or tenderness. Extremities are intact. No cyanosis or clubbing. Significant lower extremity edema. Skin is chronic changes, with dry skin, and chronic venous stasis. Neurologic examination is brief but nonfocal. Results - Laboratory Findings CBC and BMP: 01/14/24 06:38 01/14/24 06:38 PT/INR, D-dimer PT 11.7 sec (10.0-12.5) 01/14/24 06:38 INR 1.1 (<1.2) 01/14/24 06:38 D-Dimer 4.23 mg/L FEU (<0.60) H 01/14/24 06:38 Abnormal lab findings: Abnormal Labs 01/14/24 01/14/24 01/14/24 06:38 06:38 06:38 WBC 26.3 H Plt Count 599 H Neutrophils # 23.8 H D-Dimer 4.23 H Potassium 3.3 L Carbon Dioxide 33 H Glucose 70 L Plasma Lactic Acid Yunier Alkaline Phosphatase 142 H C-Reactive Protein Total Protein 6.0 L Albumin 3.1 L Urine Appearance Urine Protein Urine Blood Ur Leukocyte Esterase Urine WBC Urine Bacteria Urine Mucus 01/14/24 01/14/24 01/14/24 06:38 08:15 08:15 WBC Plt Count Neutrophils # D-Dimer Potassium Carbon Dioxide Glucose Plasma Lactic Acid Yunier 2.8 H* Alkaline Phosphatase C-Reactive Protein 2.0 H Total Protein Albumin Urine Appearance Cloudy H Urine Protein Trace H Urine Blood Small H Ur Leukocyte Esterase Large H Urine WBC 17 H Urine Bacteria Rare H Urine Mucus Rare H - Diagnostic Findings Chest x-ray: image reviewed CT scan - chest: image reviewed Assessment and Plan Assessment: Shortness of breath, likely multifactorial, in part related to CHF, and a right lower lobe pulmonary embolism, possible pneumonia. Profound weakness, which is why the patient came to the hospital. Chronic tobacco use, and possible underlying COPD. History of osteoarthritis. History of diverticulitis. History of chronic back pain. Plan: Plan dated January 14, 2024. The patient is seen in the emergency department. The patient is currently on 2 L of oxygen. She is getting saline at 75 cc an hour. The patient was getting Rocephin, and azithromycin. The patient may or may not have pneumonia. The patient has a procalcitonin level pending. The N-terminal proBNP was quite elevated. Her chest x-ray was consistent with cardiomegaly, pulmonary vascular congestion, and right greater than left pleural effusions. In addition, she had a very small right lower lobe pulmonary embolism. We will continue to follow. Prognosis is guarded. No additional recommendations are made. Time with Patient: Greater than 30
--- NOTE | 2024-01-14 14:06 | US ---
EXAMINATION TYPE: US venous doppler duplex LE BI DATE OF EXAM: 01/14/2024 1:37 PM COMPARISON: NONE CLINICAL INDICATION: Female, 73 years old with history of Lower extremity swelling; swelling after li ving in a car for a month. New PE. TECHNIQUE: The lower extremity deep venous system is examined utilizing real time linear array sonog philip with graded compression, color doppler sonography, and spectral doppler. SIDE PERFORMED: Bilateral FINDINGS: VESSELS IMAGED: Common Femoral Vein Deep Femoral Vein Greater Saphenous Vein * Femoral Vein Popliteal Vein Small Saphenous Vein * Proximal Calf Veins (* superficial vessels) Right Leg: No evidence for DVT. Slightly limited due to edema Left Leg: No evidence for DVT. Slightly limited due to edema Grayscale, color doppler, spectral doppler imaging performed of the deep veins of the lower extremiti es. IMPRESSION: Some exam limitations due to mild generalized soft tissue edema. No visualized DVT within the bilater al lower extremities imaged from the groin to the upper calf. [facility], , 01/14/2024 2:03 PM
[2024-01-14] MEDS ORDERED: ROCURONIUM 10 MG/ML (5 ML VIAL) IV ONE (15:00)
[2024-01-14] MEDS ORDERED: ETOMIDATE 2 MG/ML 10 ML VIAL ONE (15:00)
[2024-01-14] MEDS ORDERED: EPINEPHrine 10 ML SYRINGE (0.1 MG/ML) ONE (15:00)
[2024-01-14] MEDS: fentaNYL (PF) 50 MCG/ML 2 ML AMP IVP STA (15:25)
[2024-01-14 15:37] LABS: Glucose,Whole Blood 169 mg/dL (70-110)
--- NOTE | 2024-01-14 16:23 | XR ---
EXAMINATION TYPE: XR chest 1V portable DATE OF EXAM: 01/14/2024 COMPARISON: 01/14/2024 INDICATION: Postintubation, difficulty breathing TECHNIQUE: Frontal and lateral views of the chest are obtained. FINDINGS: The heart size is upper limits of normal. The pulmonary vasculature is normal. Bibasilar infiltrates are present, greater on the right. Small right pleural effusion not excluded. Endotracheal tube tip 4.4 cm above the effie. Nasogastric tube transverses the thorax with tip in th e left upper quadrant of the abdomen. IMPRESSION: 1. Right lower lobe infiltrate and/or effusion. 2. Lines and catheters discussed above [facility], Workstation: [facility], 01/14/2024 4:21 PM
[2024-01-14 16:54] LABS: ABG HCO3 27 mmol/L (21-25); ABG PCO2 53 mmHg (35-45); ABG PH 7.32 (7.35-7.45); ABG PO2 348 mmHg (83-108); ABG TCO2 29 mmol/L (19-24); Allen Test Performed? Yes
[2024-01-14] MEDS: LACTATED RINGERS 500 ML IV SCH (17:48)
[2024-01-14] MEDS: LACTATED RINGERS 1,000 ML IV ONE (17:48)
--- NOTE | 2024-01-14 18:03 | CA ---
Transthoracic Echo Report Name: Janell Victor Age: 73 Gender: F : 1950 Exam Date: 01/14/2024 14:48 Exam Location: [facility] Ht (in): 64 Wt (lb): 200 Ordering Physician: Lauren Stockton Attending/Referring Phys: [employer] Aileen Donohue RDCS Procedure CPT: Indications: chf, pe Cardiac Hx: Technical Quality: Fair Contrast 1: Total Dose (mL): Contrast 2: Total Dose (mL): MEASUREMENTS (Male / Female) Normal Values 2D ECHO LV Diastolic Diameter PLAX 5.0 cm 4.2 - 5.9 / 3.9 - 5.3 cm LV Systolic Diameter PLAX 4.0 cm IVS Diastolic Thickness 0.8 cm 0.6 - 1.0 / 0.6 - 0.9 cm LVPW Diastolic Thickness 1.0 cm 0.6 - 1.0 / 0.6 - 0.9 cm LV Relative Wall Thickness 0.4 LVOT Diameter 1.9 cm LV Diastolic Volume MOD BP 138.2 cm??? 67 - 155 / 56 - 104 cm??? LV Systolic Volume MOD BP 81.8 cm??? 22 - 58 / 19 - 49 cm??? LV Ejection Fraction MOD BP 40.8 % >= 55 % LV Cardiac Index MOD BP 2570.2 cm???/min???m??? LV Diastolic Volume MOD 4C 137.4 cm??? LV Systolic Volume MOD 4C 87.5 cm??? LV Ejection Fraction MOD 4C 36.3 % LV Cardiac Index MOD 4C 2277.3 cm???/min???m??? LV Diastolic Length 4C 8.3 cm LV Systolic Length 4C 7.8 cm LV Diastolic Volume MOD 2C 137.2 cm??? LV Systolic Volume MOD 2C 71.9 cm??? LV Ejection Fraction MOD 2C 47.6 % LV Cardiac Index MOD 2C 2975.7 cm???/min???m??? LV Diastolic Length 2C 8.2 cm LV Systolic Length 2C 7.3 cm LA Volume 102.0 cm??? 18 - 58 / 22 - 52 cm??? LA Volume Index 49.5 cm???/m??? 16 - 28 cm???/m??? DOPPLER AV Peak Velocity 161.0 cm/s AV Peak Gradient 10.4 mmHg AV Mean Velocity 121.0 cm/s AV Mean Gradient 6.4 mmHg AV Velocity Time Integral 29.2 cm LVOT Peak Velocity 119.8 cm/s LVOT Peak Gradient 5.7 mmHg LVOT Velocity Time Integral 20.8 cm LVOT Stroke Volume 61.6 cm??? LVOT Stroke Volume Index 31.5 ml/m??? LVOT Cardiac Index 2807.6 cm???/min???m??? AV Area Cont Eq vti 2.1 cm??? AV Area Cont Eq pk 2.2 cm??? MV Peak Velocity 135.4 cm/s MV Peak Gradient 7.3 mmHg MV Mean Velocity 91.4 cm/s MV Mean Gradient 3.8 mmHg MV Velocity Time Integral 27.0 cm MV Area PHT 4.6 cm??? Mitral E Point Velocity 99.7 cm/s Mitral A Point Velocity 86.7 cm/s Mitral E to A Ratio 1.1 MV Deceleration Time 165.9 ms PV Peak Velocity 91.8 cm/s PV Peak Gradient 3.4 mmHg FINDINGS Left Ventricle Left ventricular ejection fraction is estimated at 35-40 %. Severely increased left ventricular diastolic volume. Severely increased left ventricular systolic volume. Moderately to severely decreased left ventricular ejection fraction. Right Ventricle Right ventricular dilatation with mildly reduced function. Unable to estimate the right ventricular systolic pressure. Right Atrium Mild right atrial dilatation. Left Atrium Severely increased left atrial volume. Mildly increased left atrial area. Mitral Valve Mitral valve thickened. Moderate Mitral annular calcification. No evidence for mitral valve prolapse. No mitral stenosis. Moderate to severe mitral regurgitation. Aortic Valve Trileaflet aortic valve. Diffuse thickening of the aortic valve cusps with reduced excursion. No aortic stenosis. No aortic regurgitation. Tricuspid Valve Structurally normal tricuspid valve. No tricuspid stenosis. No tricuspid regurgitation. Pulmonic Valve Pulmonic valve not well visualized. No pulmonic stenosis. No pulmonic regurgitation. Pericardium No pericardial effusion. Aorta Aortic annulus normal. CONCLUSIONS Patient went into v-tach and was intubated in room. Echo terminated. Moderately to severely impaired left ventricular systolic function with no clear segmental wall motion abnormality Moderate severe mitral regurgitation Previewed by: Dr. Sandy Dias MD (Electronically Signed) Final Date: 14 January 2024 18:02
[2024-01-14] MEDS: DEXTROSE 5% IN WATER 100 ML with AMIODARONE 150 MG IV ONE (18:45)
[2024-01-14] MEDS: AMIODARONE 360 MG in DEXTROSE 5% IN WATER 200 ML IV ONE (19:02)
[2024-01-14] MEDS: fentaNYL (PF). 1,000 MCG in SODIUM CHLORIDE 0.9% 80 ML IV SCH (19:10)
[2024-01-14] MEDS: NOREPINEPHRINE 4 MG in SODIUM CHLORIDE 0.9% 250 ML IV ONE (20:08)
--- NOTE | 2024-01-14 22:17 | P.CONS ---
History of Present Illness - Reason for Consult Consult date: 01/14/24 WBC, short of breath, lactic acidosis Requesting physician: Almaz Bailey - Chief Complaint Increasing shortness of breath x days - History of Present Illness Patient is a 73-year-old female with a past medical history of CAD COPD osteoarthritis diverticulitis and chronic back pain, presented to the hospital for evaluation of weakness and increasing shortness of breath that has been getting worse for the last few days patient also complaining of cough moder ate intensity and is bringing up some yellowish sputum no hemoptysis no pleuritic chest pain no nausea no vomiting no choking on the food no abdominal pain or any diarrhea patient on presentation to the hospital was afebrile and a few have been recorded subsequently patient was nontachycardic she has been hypertensive and was hypoxic requiring supplemental oxygen patient did have a white count of 26.3 creatinine 0.97 liver enzymes are normal urine has been positive influenza RSV COVID testing negative patient did have a chest x-ray moderate right and small left effusion with adjacent atelectasis and or consolidation patient also have a CT angiogram of the chest tiny segmental branch PE located in the right lower lobe CHF with pulmonary vascular congestion collapse of the right lower lobe adjacent to the right effusion moderate to large hiatal hernia patient be started on Rocephin and Zithromax infectious he was consulted for further management of antibiotic therapy Review of Systems Positive point and negatives has been mentioned in the HPI, complete review of systems was performed and all other systems are negative Past Medical History Past Medical History: COPD, Osteoarthritis (OA) Additional Past Medical History / Comment(s): diverticulitis chronic back pain History of Any Multi-Drug Resistant Organisms: None Reported Past Surgical History: Orthopedic Surgery, Tonsillectomy Additional Past Surgical History / Comment(s): knees Past Psychological History: No Psychological Hx Reported Smoking Status: Current every day smoker Past Alcohol Use History: None Reported Past Drug Use History: None Reported Medications and Allergies Home Medications Medication Instructions Recorded Confirmed Type No Known Home Medications 01/14/24 01/14/24 History Allergies Allergy/AdvReac Type Severity Reaction Status Date / Time hydrocodone [From [place]] Allergy Dyspnea/benji Verified 01/14/24 07:33 sea oxycodone [From OxyContin] Allergy Rash/Hives Verified 01/14/24 07:33 dust Allergy Unknown Uncoded 01/14/24 05:53 Physical Exam Vitals: Vital Signs Temp Pulse Resp BP Pulse Ox 01/14/24 10:00 97.6 F 84 18 105/64 100 01/14/24 08:29 97.5 F L 75 17 123/77 96 01/14/24 06:42 57 L 20 115/91 100 01/14/24 06:40 100 01/14/24 06:26 96 Intake and Output 01/13/24 01/14/24 01/14/24 22:59 06:59 14:59 Output Total 1000 Balance -1000 Output: Urine 1000 Other: Weight 90.718 kg GENERAL DESCRIPTION: Elderly female lying in bed, no distress. No tachypnea or accessory muscle of respiration use. HEENT: Shows Pallor , no scleral icterus. Oral mucous membrane is dry. No pharyngeal erythema or thrush NECK: Trachea central, no thyromegaly. LUNGS: Unlabored breathing. Coarse breath sounds bilaterally HEART: S1, S2, regular rate and rhythm. No loud murmur ABDOMEN: Soft, no tenderness , guarding or rigidity, no organomegaly EXTREMITIES: No edema of feet. SKIN: No rash, no masses palpable. NEUROLOGICAL: The patient is awake, alert, oriented x3, mood and affect normal. Results CBC & Chem 7: 01/14/24 06:38 01/14/24 06:38 Labs: Abnormal Lab Results - Last 24 Hours (Table) 01/14/24 01/14/24 01/14/24 Range/Units 06:38 06:38 06:38 WBC 26.3 H (3.8-10.6) k/uL Plt Count 599 H (150-450) k/uL Neutrophils # 23.8 H (1.3-7.7) k/uL D-Dimer 4.23 H (<0.60) mg/L FEU Potassium 3.3 L (3.5-5.1) mmol/L Carbon Dioxide 33 H (22-30) mmol/L Glucose 70 L (74-99) mg/dL Plasma Lactic Acid Yunier (0.7-2.0) mmol/L Alkaline Phosphatase 142 H (38-126) U/L C-Reactive Protein (<1.0) mg/dL Total Protein 6.0 L (6.3-8.2) g/dL Albumin 3.1 L (3.5-5.0) g/dL Urine Appearance (Clear) Urine Protein (Negative) Urine Blood (Negative) Ur Leukocyte Esterase (Negative) Urine WBC (0-5) /hpf Urine Bacteria (None) /hpf Urine Mucus (None) /hpf 01/14/24 01/14/24 01/14/24 Range/Units 06:38 08:15 08:15 WBC (3.8-10.6) k/uL Plt Count (150-450) k/uL Neutrophils # (1.3-7.7) k/uL D-Dimer (<0.60) mg/L FEU Potassium (3.5-5.1) mmol/L Carbon Dioxide (22-30) mmol/L Glucose (74-99) mg/dL Plasma Lactic Acid Yunier 2.8 H* (0.7-2.0) mmol/L Alkaline Phosphatase (38-126) U/L C-Reactive Protein 2.0 H (<1.0) mg/dL Total Protein (6.3-8.2) g/dL Albumin (3.5-5.0) g/dL Urine Appearance Cloudy H (Clear) Urine Protein Trace H (Negative) Urine Blood Small H (Negative) Ur Leukocyte Esterase Large H (Negative) Urine WBC 17 H (0-5) /hpf Urine Bacteria Rare H (None) /hpf Urine Mucus Rare H (None) /hpf Assessment and Plan (1) Pneumonia Current Visit: Yes Status: Acute Code(s): J18.9 - PNEUMONIA, UNSPECIFIED ORGANISM SNOMED Code(s): 273245061 (2) Leukocytosis Current Visit: Yes Status: Acute Code(s): D72.829 - ELEVATED WHITE BLOOD MASSIEL L COUNT, UNSPECIFIED SNOMED Code(s): 774807787 Plan: 1patient presented to hospital with increasing shortness of breath is likely multifactorial in this patient with underlying COPD patient also have a cough bring up some yellow sputum concerning possible for pneumonia with a CT angiogram also showing effusion as well as PE and collapse of the right lower lobe possible mucous plugging with secondary postoperative pneumonia not entirely excluded 2-try to obtain a sputum for Gram stain culture and await the procalcitonin 3-patient is empirically covered with Rocephin Zithromax to continue while waiting for the workup to be completed We will follow on clinical condition and cultures to further adjust medication if needed Thank you for this consultation we will follow the patient along with you Dictation was produced using [employer] dictation software. please excuse any grammatical, word or spelling errors. Time with Patient: Greater than 30
[2024-01-14] MEDS: SODIUM CHLORIDE 0.9% 500 ML 500 ML IV ONE (23:33)
[2024-01-14] MEDS: VASOPRESSIN 60 UNIT in SODIUM CHLORIDE 0.9% 150 ML IV SCH (23:55)
[2024-01-15] MEDS: AMIODARONE 450 MG in DEXTROSE 5% IN WATER 250 ML IV SCH (00:26)
[2024-01-15] MEDS: NOREPINEPHRINE 4 MG in SODIUM CHLORIDE 0.9% 250 ML IV SCH (01:02)
[2024-01-15] MEDS: ACETAMINOPHEN TAB 325 MG TAB PO PRN (01:55)
[2024-01-15 05:28] LABS: ALT 18 U/L (4-34); AST 59 U/L (14-36); African American GFR (CKD) 52 (>60 ml/min/1.73 sqM); Albumin 2.9 g/dL (3.5-5.0); Alkaline Phosphatase 145 U/L (38-126); Anion Gap 13 mmol/L; Blood Urea Nitrogen 21 mg/dL (7-17); Calcium 7.5 mg/dL (8.4-10.2); Carbon Dioxide 21 mmol/L (22-30); Chloride 104 mmol/L (98-107); Glucose 143 mg/dL (74-99); Non-African American GFR(CKD) 45 (>60 ml/min/1.73 sqM); Sodium 138 mmol/L (137-145); Total Bilirubin 1.1 mg/dL (0.2-1.3); Total Protein 5.8 g/dL (6.3-8.2)
[2024-01-15 05:54] LABS: Basophils # (A) 0.1 k/uL (0-0.2); Basophils % (A) 0 %; Eosinophils % (A) 0 %; HCT 40.3 % (34.0-46.0); HGB 12.1 gm/dL (11.4-16.0); Hypochromasia Marked; Lymphocytes # (A) 1.3 k/uL (1.0-4.8); Lymphocytes % (A) 4 %; MCH 26.5 pg (25.0-35.0); MCHC 30.1 g/dL (31.0-37.0); MCV 88.1 fL (80.0-100.0); Mean Platelet Volume 8.3; Monocytes # (A) 1.1 k/uL (0-1.0); Monocytes % (A) 4 %; Neutrophils % (A) 91 %; Platelet Count 599 k/uL (150-450); RBC 4.57 m/uL (3.80-5.40); RDW 15.7 % (11.5-15.5); WBC 30.7 k/uL (3.8-10.6)
[2024-01-15 08:48] LABS: ABG Base Excess -9.6 mmol/L; ABG HCO3 17 mmol/L (21-25); ABG Oxygen Saturation 97.6 % (94-97); ABG PCO2 39 mmHg (35-45); ABG PH 7.25 (7.35-7.45); ABG PO2 119 mmHg (83-108); ABG TCO2 18 mmol/L (19-24); Allen Test Performed? Yes
[2024-01-15] MEDS: PANTOPRAZOLE 40 MG/10 ML VIAL IV SCH (09:04)
--- NOTE | 2024-01-15 09:05 | XR ---
EXAMINATION TYPE: XR chest 1V portable DATE OF EXAM: 01/15/2024 Comparison: 01/15/2024 Clinical History: 73-year-old female line placement left IJ triple lumen Findings: ET and NG tubes are satisfactory. Left CVC tip at the lower SVC level. Heart mildly enlarged. Supine imaging with right mid and lower lung opacities which persist. No appreciable pneumothorax. Impression: Ongoing layering pleural effusion probably moderate in size on the right. Supine view. Adjacent atele ctasis and/or consolidation. [facility], , 01/15/2024 9:03 AM
[2024-01-15] MEDS: AZITHROMYCIN 500 MG TAB PO SCH (09:07)
--- NOTE | 2024-01-15 09:20 | PCN ---
PROCEDURE NOTE PROCEDURE PERFORMED: Right radial art line. PREOPERATIVE DIAGNOSES: Administration of fluids and pressors, frequent blood draws and blood gas monitoring. POSTOPERATIVE DIAGNOSES: Administration of fluids and pressors, frequent blood draws and blood gas monitoring. OPERATORS: Dr. Cortez, Dr. Ignacio Wesley, Dr. Rachel Gandara. The patient's procedure took place in trauma room #1 in the emergency department. ARTERIAL LINE PLACEMENT: Indications: Hemodynamic monitoring. A time-out was completed verifying correct patient, procedure, site, positioning, and implant(s) or special equipment if applicable. Christian's test was performed to ensure adequate perfusion. The patient's right wrist or right groin was prepped and draped in sterile fashion. 1% Lidocaine was used to anesthetize the area. An 18G Arrow arterial line was introduced into the right radial artery. The catheter was threaded over the guide wire and the needle was removed with appropriate pulsatile blood return. Blood loss was minimal. The catheter was then sutured in place to the skin and a sterile dressing applied. Perfusion to the extremity distal to the point of catheter insertion was checked and found to be adequate. The patient tolerated the procedure well and there were no complications. There was good blood return and waveform. The patient tolerated the procedure well. The catheter was sutured in place. There was no immediate complication. MMODL / IJN: [id number] /
--- NOTE | 2024-01-15 09:41 | PCN ---
PROCEDURE NOTE PROCEDURE: Left internal jugular triple-lumen catheter. PREOPERATIVE DIAGNOSES: Administration of fluids and pressors, hypotension. POSTOPERATIVE DIAGNOSES: Administration of fluids and pressors, hypotension. OPERATORS: Dr. Cortez, Dr. Gandara, Dr. Ignacio Wesley. The patient's procedure took place in trauma room 1 in the emergency department. TRIPLE LUMEN CATHETER PLACEMENT: Indication: Hemodynamic monitoring/Intravenous access. A time-out was completed verifying correct patient, procedure, site, positioning, and implant(s) or special equipment if applicable. The patient was placed in a dependent position appropriate for triple lumen catheter placement based on the vein to be cannulated. The patient's left shoulder or left neck or left groin was prepped and draped in sterile fashion. 1% Lidocaine was used to anesthetize the surrounding skin area. A triple lumen 9F Cordis catheter was introduced into the internal jugular vein using Seldinger technique. The catheter was threaded smoothly over the guide wire and appropriate blood return was obtained. Each lumen of the catheter was evacuated of air and flushed with sterile saline. The catheter was then sutured in place to the skin and a sterile dressing applied. Perfusion to the extremity distal to the point of catheter insertion was checked and found to be adequate. We used the internal jugular site via the posterior approach. There was good blood return from all 3 ports. The patient tolerated the procedure well. There was no immediate complication. Chest x-ray will be ordered to check placement. The tip of the catheter was seen at the junction of superior vena cava and the right atrium. The catheter was sutured in place. Sterile dressings were applied by the nurse. Again, there was no immediate complication and the patient tolerated the procedure very well. MMODL / IJN: [id number] /
[2024-01-15 09:45] VITALS: TEMP 98.9
[2024-01-15] MEDS: CHLORHEXIDINE GLUCONATE 15 ML CUP MUCOUS MEM SCH (10:13)
--- NOTE | 2024-01-15 10:14 | XR ---
EXAMINATION TYPE: XR chest 1V portable DATE OF EXAM: 01/15/2024 Comparison: 01/14/2024 Clinical History: 73 year-old female tube placement Findings: ET and NG tubes are satisfactory. Heart mildly enlarged. Hyperinflation. Opacity continues along the right mid and lower lung. Impression: Opacity continues throughout the right mid and lower lung favored to represent a moderate sized layer ing pleural effusion with adjacent atelectasis and/or consolidation. Mild cardiomegaly and background COPD. [facility], , 01/15/2024 10:11 AM
[2024-01-15 10:28] VITALS: RESP 20
--- NOTE | 2024-01-15 11:47 | P.PN ---
Subjective Progress Note Date: 01/15/24 73-year-old female who is seen in the emergency department, room 26. The patient apparently presents, via EMS. She apparently came in for shortness of breath and weakness. She apparently has been living in her car, for months. She states that she uses the bathroom, in the bushes, and feels like she is too weak or lazy to go to her house. She apparently does own a house. In addition, she has been apparently warming cans of chicken noodle soup, on the dashboard, allowing the son, the heat the soup. She appears not to be particularly clean, and has not showered. She has significant lower extremity chronic venous stasis changes, and significant lower extremity edema. She is currently on 2 L of oxygen. She is getting saline at 75 cc an hour. He has been given Rocephin and azithromycin. Will check a procalcitonin level and an N-terminal proBNP. Her chest x-ray is consistent with CHF, she was also found to have a small pulmonary embolism, in the right lower lobe. She has bilateral right greater than left effusions as well. White count 26.3, hemoglobin 12.4, hematocrit 39.7, platelet count 599,000. D-dimer was 4.23. Sodium 143, potassium 3.3, chlorides 103, CO2 33, BUN 13, creatinine 0.97. Lactic acid was 2.8. N-terminal proBNP was 24,800. Procalcitonin level is pending. Urine is cloudy, with trace protein. Blood is small. Leukocyte esterases large positive. There are 17 WBCs. There is rare bacteria. She tested negative for influenza, RSV, and coronavirus. As mentioned, x-rays, and scans reveal evidence of cardiomegaly, CHF, bilateral effusions, right greater than left, and a small right lower lobe pulmonary embolism. 01/14/24 - Patient seen at the bedside this morning in the emergency department, trauma bay 1. Yesterday, patient was undergoing echocardiogram in the afternoon patient went into V. tach he was intubated in the room. Upon seeing the patient today, inserted left IJ triple-lumen central line as well as a right radial arterial line. She is now on her second day of her hospital stay (admitted 01/13), and will be transferred into the ICU today however she has already been seen by our service both days of her stay. She is currently receiving ventilatory support with a rate of 20, tidal volume 400, FiO2 50% and a PEEP at 5. ABG done following insertion of the central and arterial lines showed pO2 119, pCO2 38.5, pH 7.25. Upon learning this, patient's ventilatory support will be changed to a rate of 20, tidal volume 400, FiO2 40% and maintain PEEP at 5. She is currently on a heparin drip, propofol at 15 mcg/kg/min, vasopressin at 0.03 units/min, amiodarone at 0.5 mg/min, norepinephrine at 0.09 mcg/kg/min. Additionally patient is on 500 mg of Zithromax daily (dose 1 of 2 today) and Rocephin 2 g IV (bag 1 of 4 today). Her WBC is 30.7, Hgb 12.1, Hct 40.3, PLT 599, BUN 21, creatinine 1.21, plasma lactic acid 9.6. Chest x-ray completed this morning showed ongoing layering pleural effusion with additional adjacent atelectasis and/or consolidation. Patient has remained afebrile, however has remained hypotensive and with an elevated WBC and bradycardic. REVIEW OF SYSTEMS: Patient is currently intubated. PHYSICAL EXAMINATION: GENERAL: The patient is alert and oriented x3, not in any acute distress. She looks much older than her stated age. HEENT: Pupils are round and equally reacting to light. EOMI. No scleral icterus. No conjunctival pallor. Normocephalic, atraumatic. No pharyngeal erythema. No thyromegaly. CARDIOVASCULAR: S1 and S2 present. No murmurs, rubs, or gallops. PULMONARY: Patient is currently intubated. Bilateral crackles are noted. ABDOMEN: Soft, nontender, nondistended, normoactive bowel sounds. No palpable organomegaly. MUSCULOSKELETAL: No joint swelling or deformity. EXTREMITIES: No cyanosis, clubbing, or pedal edema. NEUROLOGICAL: Gross neurological examination did not reveal any focal deficits. Awake, alert, oriented x3. SKIN: Chronic age-related changes. Dry skin and chronic venous stasis noted. Assessment and plan # Shortness of breath and metabolic acidosis, likely multifactorial, possibly related to CHF, right lower lobe pulmonary embolism, possible pneumonia - currently intubated Patient intubated mechanically ventilated with ventilatory support with a rate of 20, tidal volume 400, FiO2 50%, and a PEEP at 5 ABG showed pO2 119, pCO2 38.5, pH 7.25 proBNP 24,800 in regards to CHF exacerbation Procalcitonin noncontributory at 0.09 in regards to possible bacterial pneumonia - DuoNeb 3 mL QID, Solumedrol 60 mg IV Q6HR # Lactic acidosis possibly secondary to hypoxia or septic shock Patient's lactic acid on arrival was 2.8, has increased to 9.6 as of this morning (01/14) - WBCs >30, she has been hypotensive 90s/50s and bradycardic in regards to possible septic shock # Small right lower lobe pulmonary embolism Patient placed on heparin drip # Urinary tract infection Urinalysis was cloudy and showed large amounts of leukocyte esterase Pulmonary urine culture results positive for gram-negative bacilli Patient receiving 2 g IV Rocephin (bag 1 of 4 today 01/14) # Profound weakness Was presenting complaint when she arrived in the emergency department, however unable to assess upon seeing the patient today as a result of her intubation and sedation # Chronic tobacco use, possibly underlying COPD # History of osteoarthritis # History of diverticulitis # History of chronic back pain GI prophylaxis: Protonix 40 mg IV daily Continue to monitor CBC, CMP, vital signs. Dictation was produced using [employer] dictation software. please excuse any grammatical, word or spelling errors. Objective - Vital Signs Vital signs: Vital Signs Temp 37.9 F L 01/15/24 08:45 Pulse 61 01/15/24 08:52 Resp 20 01/15/24 08:45 BP 95/53 01/15/24 08:45 Pulse Ox 97 01/15/24 08:45 FiO2 50 01/15/24 08:45 Intake & Output 01/14/24 01/15/24 01/15/24 18:59 06:59 18:59 Intake Total 131.858 655.322 40.46 Output Total 2000 350 95 Balance -1868.142 305.322 -54.54 Intake: Intake, IV Titration 131.858 655.322 40.46 Amount Heparin Sod,Pork in 0.45% 111.854 112.493 NaCl 25,000 unit In 0.45 % NaCl 1 250ml.bag @ 18 UNITS/KG/HR 16.329 mls/hr IV .[id number] [facility] Rx#: [id number] Norepinephrine 4 mg In 254.000 Sodium Chloride 0.9% 250 ml @ 0.03 MCG/KG/MIN 10. 369 mls/hr IV .Q24H [facility] Rx#:[id number] Norepinephrine 4 mg In 172.646 Sodium Chloride 0.9% 250 ml @ 0.03 MCG/KG/MIN 10. 369 mls/hr IV .Q24H [facility] Rx#:[id number] fentaNYL (PF). 1,000 mcg 38.707 In Sodium Chloride 0.9% 80 ml @ 0.5 MCG/KG/HR 4. 536 mls/hr IV .Q22H3M [facility] Rx#:[id number] propofoL 1,000 mg In 20.004 77.476 40.46 Empty Bag 1 bag @ 15 MCG/ KG/MIN 8.165 mls/hr IV . [id number] [facility] Rx#:[id number] Output: Urine 2000 350 95 - Labs CBC & Chem 7: 01/15/24 04:54 01/15/24 04:54 Labs: Abnormal Lab Results - Last 24 Hours (Table) 01/14/24 01/14/24 01/14/24 Range/Units 08:15 14:03 15:35 WBC (3.8-10.6) k/uL MCHC (31.0-37.0) g/dL RDW (11.5-15.5) % Plt Count (150-450) k/uL Neutrophils # (1.3-7.7) k/uL Monocytes # (0-1.0) k/uL APTT (22.0-30.0) sec ABG pH (7.35-7.45) ABG pCO2 (35-45) mmHg ABG pO2 (83-108) mmHg ABG HCO3 (21-25) mmol/L ABG Total CO2 (19-24) mmol/L ABG O2 Saturation (94-97) % Carbon Dioxide (22-30) mmol/L BUN (7-17) mg/dL Creatinine (0.52-1.04) mg/dL Glucose (74-99) mg/dL POC Glucose (mg/dL) 169 H (70-110) mg/dL Plasma Lactic Acid Yunier 3.0 H* (0.7-2.0) mmol/L Calcium (8.4-10.2) mg/dL AST (14-36) U/L Alkaline Phosphatase (38-126) U/L C-Reactive Protein 2.0 H (<1.0) mg/dL Total Protein (6.3-8.2) g/dL Albumin (3.5-5.0) g/dL 01/14/24 01/14/24 01/14/24 Range/Units 16:10 16:35 18:10 WBC (3.8-10.6) k/uL MCHC (31.0-37.0) g/dL RDW (11.5-15.5) % Plt Count (150-450) k/uL Neutrophils # (1.3-7.7) k/uL Monocytes # (0-1.0) k/uL APTT 148.0 H* (22.0-30.0) sec ABG pH 7.32 L (7.35-7.45) ABG pCO2 53 H (35-45) mmHg ABG pO2 348 H (83-108) mmHg ABG HCO3 27 H (21-25) mmol/L ABG Total CO2 29 H (19-24) mmol/L ABG O2 Saturation 100.0 H (94-97) % Carbon Dioxide (22-30) mmol/L BUN (7-17) mg/dL Creatinine (0.52-1.04) mg/dL Glucose (74-99) mg/dL POC Glucose (mg/dL) (70-110) mg/dL Plasma Lactic Acid Yunier 2.9 H* (0.7-2.0) mmol/L Calcium (8.4-10.2) mg/dL AST (14-36) U/L Alkaline Phosphatase (38-126) U/L C-Reactive Protein (<1.0) mg/dL Total Protein (6.3-8.2) g/dL Albumin (3.5-5.0) g/dL 01/14/24 01/15/24 01/15/24 Range/Units 21:37 01:12 01:12 WBC (3.8-10.6) k/uL MCHC (31.0-37.0) g/dL RDW (11.5-15.5) % Plt Count (150-450) k/uL Neutrophils # (1.3-7.7) k/uL Monocytes # (0-1.0) k/uL APTT 148.1 H* (22.0-30.0) sec ABG pH (7.35-7.45) ABG pCO2 (35-45) mmHg ABG pO2 (83-108) mmHg ABG HCO3 (21-25) mmol/L ABG Total CO2 (19-24) mmol/L ABG O2 Saturation (94-97) % Carbon Dioxide (22-30) mmol/L BUN (7-17) mg/dL Creatinine (0.52-1.04) mg/dL Glucose (74-99) mg/dL POC Glucose (mg/dL) (70-110) mg/dL Plasma Lactic Acid Yunier 2.3 H* 2.7 H* (0.7-2.0) mmol/L Calcium (8.4-10.2) mg/dL AST (14-36) U/L Alkaline Phosphatase (38-126) U/L C-Reactive Protein (<1.0) mg/dL Total Protein (6.3-8.2) g/dL Albumin (3.5-5.0) g/dL 01/15/24 01/15/24 01/15/24 Range/Units 04:54 04:54 04:54 WBC 30.7 H (3.8-10.6) k/uL MCHC 30.1 L (31.0-37.0) g/dL RDW 15.7 H (11.5-15.5) % Plt Count 599 H (150-450) k/uL Neutrophils # 28.0 H (1.3-7.7) k/uL Monocytes # 1.1 H (0-1.0) k/uL APTT (22.0-30.0) sec ABG pH (7.35-7.45) ABG pCO2 (35-45) mmHg ABG pO2 (83-108) mmHg ABG HCO3 (21-25) mmol/L ABG Total CO2 (19-24) mmol/L ABG O2 Saturation (94-97) % Carbon Dioxide 21 L (22-30) mmol/L BUN 21 H (7-17) mg/dL Creatinine 1.21 H (0.52-1.04) mg/dL Glucose 143 H (74-99) mg/dL POC Glucose (mg/dL) (70-110) mg/dL Plasma Lactic Acid Yunier 6.7 H* (0.7-2.0) mmol/L Calcium 7.5 L (8.4-10.2) mg/dL AST 59 H (14-36) U/L Alkaline Phosphatase 145 H (38-126) U/L C-Reactive Protein (<1.0) mg/dL Total Protein 5.8 L (6.3-8.2) g/dL Albumin 2.9 L (3.5-5.0) g/dL 01/15/24 01/15/24 Range/Units 08:38 08:40 WBC (3.8-10.6) k/uL MCHC (31.0-37.0) g/dL RDW (11.5-15.5) % Plt Count (150-450) k/uL Neutrophils # (1.3-7.7) k/uL Monocytes # (0-1.0) k/uL APTT (22.0-30.0) sec ABG pH 7.25 L (7.35-7.45) ABG pCO2 (35-45) mmHg ABG pO2 119 H (83-108) mmHg ABG HCO3 17 L (21-25) mmol/L ABG Total CO2 18 L (19-24) mmol/L ABG O2 Saturation 97.6 H (94-97) % Carbon Dioxide (22-30) mmol/L BUN (7-17) mg/dL Creatinine (0.52-1.04) mg/dL Glucose (74-99) mg/dL POC Glucose (mg/dL) (70-110) mg/dL Plasma Lactic Acid Yunier 9.6 H* (0.7-2.0) mmol/L Calcium (8.4-10.2) mg/dL AST (14-36) U/L Alkaline Phosphatase (38-126) U/L C-Reactive Protein (<1.0) mg/dL Total Protein (6.3-8.2) g/dL Albumin (3.5-5.0) g/dL
[2024-01-15] MEDS ORDERED: PIPERACILLIN-TAZOBACTAM 3.375 GM in SODIUM CHLORIDE 0.9% 100 ML IVPB SCH (12:20)
[2024-01-15 12:21] VITALS: PULSE 58
[2024-01-15 12:22] VITALS: BP 88/37
[2024-01-15] MEDS: NOREPINEPHRINE 8 MG in SODIUM CHLORIDE 0.9% 250 ML IV ONE (12:23)
[2024-01-15] MEDS ORDERED: SODIUM BICARB 8.4% 50 ML SYR (1 MEQ/ML) ONE (12:25)
[2024-01-15] MEDS ORDERED: EPINEPHrine 10 ML SYRINGE (0.1 MG/ML) ONE (12:25)
[2024-01-15] MEDS ORDERED: ATROPINE SULFATE 0.1 MG/ML 10ML SYRINGE ONE (12:25)
[2024-01-15] MEDS ORDERED: DEXTROSE 50% SYRINGE 50 ML IVP ONE (12:25)
[2024-01-15 12:37] LABS: Glucose,Whole Blood 40 mg/dL (70-110)
--- NOTE | 2024-01-15 13:47 | P.PN ---
Subjective Progress Note Date: 01/15/24 patient is 73-year-old lady with past medical history significant for COPD who presented the ER because of shortness of breath and weakness. Patient is very poor historian, apparently patient has been living out of her car in her driveway. Patient is not going to her house and uses her car and the restroom in the yard. Patient states that she has been feeling sick for the last few days. Patient complaining of shortness of breath at rest. Denies any chest pain. There is no complaint of fever or chills. Patient denies any cough. Patient complains of generalized weakness. Denies any nausea, vomit abdominal pain. Because of worsening shortness of breath, EMS was called and patient brought to the ER Initial lab work done in the ER showed WBC 26.3, hemoglobin 12.4, platelet count 599, INR 1.1, D-dimer 4.23, sodium 143, potassium 3.3, carbon dioxide 33, lactate 2.8, AST 23, ALT 9, alk phos 142, proBNP 24 800 UA showed large amount of leukocyte Estrace, urine WBC 17, urine nitrite negative Influenza A not detected Influenza B not detected RSV not detected COVID-19 not detected Chest x-ray done in the ER showed moderate right and small left pleural effusion with adjacent atelectasis or consolidation. Possible CHF with pulm vascular congestion CTA chest done showed a single tiny segmental branch PE. CHF with pulmonary congestion. Collapse the right lower lobe adjacent to the right pleural effusion Moderate to large hiatal hernia involving half of the stomach in the lower chest Patient admitted to internal medicine service 01/14. Patient seen and examined. Labs on this morning showed WBC 30.7, hemoglobin 12.1, platelet count 599, sodium 138, potassium 5, BUN 21, creatinine 1.1, lactate 6.7 bilirubin 1.1. patient intubated yesterday evening after going into V. tach, underwent CPR. REVIEW OF SYSTEMS: Cannot be obtained as patient is intubated PHYSICAL EXAMINATION: GENERAL: The patient is intubated HEENT: Pupils are round and equally reacting to light. EOMI. No scleral icterus. No conjunctival pallor. Normocephalic, atraumatic. No pharyngeal erythema. No thyromegaly. CARDIOVASCULAR: S1 and S2 present. No murmurs, rubs, or gallops. PULMONARY: Chest is clear to auscultation, no wheezing or crackles. ABDOMEN: Soft, nontender, nondistended, normoactive bowel sounds. No palpable organomegaly. MUSCULOSKELETAL: No joint swelling or deformity. EXTREMITIES: No cyanosis, clubbing, or pedal edema. NEUROLOGICAL: Intubated SKIN: No rashes. Assessment and plan Acute hypoxic respiratory failure Bacterial pneumonia Bilateral pleural effusion V. tach Acute COPD exacerbation Acute CHF Lactic acidosis Acute PE Monitor vital signs Monitor CBC Monitor CMP Continue telemetry monitoring Continue vent management Follow-up on blood cultures Continue IV Zosyn and azithromycin Continue pharmacy dose heparin Continue strict I's and O's, daily weights, continue Lasix 40 daily Cardiology following Pulmonology following ID following Labs and medication were reviewed.. Continue same treatment. Continue with symptomatic treatment. Resume home medication. Monitor labs and vitals. DVT and GI prophylaxis. Further recommendations as per clinical course of the pat ient Dictation was produced using [employer] dictation software. please excuse any grammatical, word or spelling errors. Objective - Vital Signs Vital signs: Vital Signs Temp 98.9 F 01/15/24 09:45 Pulse 59 L 01/15/24 09:45 Resp 20 01/15/24 09:45 BP 92/50 01/15/24 09:45 Pulse Ox 97 01/15/24 09:43 FiO2 30 01/15/24 09:45 Intake & Output 01/14/24 01/15/24 01/15/24 18:59 06:59 18:59 Intake Total 131.858 655.322 187.534 Output Total 2000 350 95 Balance -1868.142 305.322 92.534 Intake: Intake, IV Titration 131.858 655.322 187.534 Amount Heparin Sod,Pork in 0.45% 111.854 112.493 65.72 NaCl 25,000 unit In 0.45 % NaCl 1 250ml.bag @ 18 UNITS/KG/HR 16.329 mls/hr IV .[id number] [facility] Rx#: [id number] Norepinephrine 4 mg In 254.000 Sodium Chloride 0.9% 250 ml @ 0.03 MCG/KG/MIN 10. 369 mls/hr IV .Q24H [facility] Rx#:[id number] Norepinephrine 4 mg In 172.646 81.354 Sodium Chloride 0.9% 250 ml @ 0.03 MCG/KG/MIN 10. 369 mls/hr IV .Q24H [facility] Rx#:[id number] fentaNYL (PF). 1,000 mcg 38.707 In Sodium Chloride 0.9% 80 ml @ 0.5 MCG/KG/HR 4. 536 mls/hr IV .Q22H3M [facility] Rx#:[id number] propofoL 1,000 mg In 20.004 77.476 40.46 Empty Bag 1 bag @ 15 MCG/ KG/MIN 8.165 mls/hr IV . [id number] [facility] Rx#:[id number] Output: Urine 2000 350 95 - Labs CBC & Chem 7: 01/15/24 04:54 01/15/24 04:54 Labs: Abnormal Lab Results - Last 24 Hours (Table) 01/14/24 01/14/24 01/14/24 Range/Units 14:03 15:35 16:10 WBC (3.8-10.6) k/uL MCHC (31.0-37.0) g/dL RDW (11.5-15.5) % Plt Count (150-450) k/uL Neutrophils # (1.3-7.7) k/uL Monocytes # (0-1.0) k/uL APTT 148.0 H* (22.0-30.0) sec ABG pH (7.35-7.45) ABG pCO2 (35-45) mmHg ABG pO2 (83-108) mmHg ABG HCO3 (21-25) mmol/L ABG Total CO2 (19-24) mmol/L ABG O2 Saturation (94-97) % Carbon Dioxide (22-30) mmol/L BUN (7-17) mg/dL Creatinine (0.52-1.04) mg/dL Glucose (74-99) mg/dL POC Glucose (mg/dL) 169 H (70-110) mg/dL Plasma Lactic Acid Yunier 3.0 H* (0.7-2.0) mmol/L Calcium (8.4-10.2) mg/dL AST (14-36) U/L Alkaline Phosphatase (38-126) U/L Total Protein (6.3-8.2) g/dL Albumin (3.5-5.0) g/dL 01/14/24 01/14/2401/13/24 Range/Units 16:35 18:10 21:37 WBC (3.8-10.6) k/uL MCHC (31.0-37.0) g/dL RDW (11.5-15.5) % Plt Count (150-450) k/uL Neutrophils # (1.3-7.7) k/uL Monocytes # (0-1.0) k/uL APTT (22.0-30.0) sec ABG pH 7.32 L (7.35-7.45) ABG pCO2 53 H (35-45) mmHg ABG pO2 348 H (83-108) mmHg ABG HCO3 27 H (21-25) mmol/L ABG Total CO2 29 H (19-24) mmol/L ABG O2 Saturation 100.0 H (94-97) % Carbon Dioxide (22-30) mmol/L BUN (7-17) mg/dL Creatinine (0.52-1.04) mg/dL Glucose (74-99) mg/dL POC Glucose (mg/dL) (70-110) mg/dL Plasma Lactic Acid Yunier 2.9 H* 2.3 H* (0.7-2.0) mmol/L Calcium (8.4-10.2) mg/dL AST (14-36) U/L Alkaline Phosphatase (38-126) U/L Total Protein (6.3-8.2) g/dL Albumin (3.5-5.0) g/dL 01/15/24 01/15/24 01/15/24 Range/Units 01:12 01:12 04:54 WBC 30.7 H (3.8-10.6) k/uL MCHC 30.1 L (31.0-37.0) g/dL RDW 15.7 H (11.5-15.5) % Plt Count 599 H (150-450) k/uL Neutrophils # 28.0 H (1.3-7.7) k/uL Monocytes # 1.1 H (0-1.0) k/uL APTT 148.1 H* (22.0-30.0) sec ABG pH (7.35-7.45) ABG pCO2 (35-45) mmHg ABG pO2 (83-108) mmHg ABG HCO3 (21-25) mmol/L ABG Total CO2 (19-24) mmol/L ABG O2 Saturation (94-97) % Carbon Dioxide (22-30) mmol/L BUN (7-17) mg/dL Creatinine (0.52-1.04) mg/dL Glucose (74-99) mg/dL POC Glucose (mg/dL) (70-110) mg/dL Plasma Lactic Acid Yunier 2.7 H* (0.7-2.0) mmol/L Calcium (8.4-10.2) mg/dL AST (14-36) U/L Alkaline Phosphatase (38-126) U/L Total Protein (6.3-8.2) g/dL Albumin (3.5-5.0) g/dL 01/15/24 01/15/24 01/15/24 Range/Units 04:54 04:54 08:38 WBC (3.8-10.6) k/uL MCHC (31.0-37.0) g/dL RDW (11.5-15.5) % Plt Count (150-450) k/uL Neutrophils # (1.3-7.7) k/uL Monocytes # (0-1.0) k/uL APTT >200.0 H* (22.0-30.0) sec ABG pH (7.35-7.45) ABG pCO2 (35-45) mmHg ABG pO2 (83-108) mmHg ABG HCO3 (21-25) mmol/L ABG Total CO2 (19-24) mmol/L ABG O2 Saturation (94-97) % Carbon Dioxide 21 L (22-30) mmol/L BUN 21 H (7-17) mg/dL Creatinine 1.21 H (0.52-1.04) mg/dL Glucose 143 H (74-99) mg/dL POC Glucose (mg/dL) (70-110) mg/dL Plasma Lactic Acid Yunier 6.7 H* (0.7-2.0) mmol/L Calcium 7.5 L (8.4-10.2) mg/dL AST 59 H (14-36) U/L Alkaline Phosphatase 145 H (38-126) U/L Total Protein 5.8 L (6.3-8.2) g/dL Albumin 2.9 L (3.5-5.0) g/dL 01/15/24 01/15/24 Range/Units 08:38 08:40 WBC (3.8-10.6) k/uL MCHC (31.0-37.0) g/dL RDW (11.5-15.5) % Plt Count (150-450) k/uL Neutrophils # (1.3-7.7) k/uL Monocytes # (0-1.0) k/uL APTT (22.0-30.0) sec ABG pH 7.25 L (7.35-7.45) ABG pCO2 (35-45) mmHg ABG pO2 119 H (83-108) mmHg ABG HCO3 17 L (21-25) mmol/L ABG Total CO2 18 L (19-24) mmol/L ABG O2 Saturation 97.6 H (94-97) % Carbon Dioxide (22-30) mmol/L BUN (7-17) mg/dL Creatinine (0.52-1.04) mg/dL Glucose (74-99) mg/dL POC Glucose (mg/dL) (70-110) mg/dL Plasma Lactic Acid Yunier 9.6 H* (0.7-2.0) mmol/L Calcium (8.4-10.2) mg/dL AST (14-36) U/L Alkaline Phosphatase (38-126) U/L Total Protein (6.3-8.2) g/dL Albumin (3.5-5.0) g/dL
--- NOTE | 2024-01-15 14:56 | P.EN ---
Code called overhead at 1228 on 01/15/2024. Patient was found to be bradycardic and then pulseless. Initial rhythm was asystole. Blood sugars found to be 40, 1 amp of dextrose given, total of 4 epi given, and 2 bicarb. Also given atropine. No ROSC, patient pronounced at 1241. Pupils fixed and dilated. Apparently patient had 2 brief cardiac arrest yesterday. Attempts made to contact family, no family available.
--- NOTE | 2024-01-16 14:21 | P.PN ---
Subjective Progress Note Date: 01/15/24 Principal diagnosis: Reason for follow-up is sepsis and pneumonia Patient is a 73-year-old female with a past medical history of CAD COPD osteoarthritis diverticulitis and chronic back pain, presented to the hospital for evaluation of weakness and increasing shortness of breath, patient diagnosed with possible pneumonia started antibiotics subsequently did have a cardiac arrest requiring intubation. On today's evaluation that is 01/15/2024, Patient did have resolution of her fever and is afebrile this morning patient is intubated on the vent FiO2 is down to 30%, patient requiring 2 different pressor support at this point as reported by the nursing staff no vomiting or significant aspiration noted at the time of intubation. The patient white count is up to 30.7 creatinine is 1.21 lactic acid is elevated urine with a gram-negative blood cultures pending sputum cultures pending Objective - Vital Signs Vital signs: Vital Signs Temp 98.9 F 01/15/24 10:28 Pulse 58 L 01/15/24 10:28 Resp 20 01/15/24 10:28 BP 96/54 01/15/24 10:28 Pulse Ox 97 01/15/24 10:13 FiO2 30 01/15/24 10:28 Intake & Output 01/14/24 01/15/24 01/15/24 18:59 06:59 18:59 Intake Total 131.858 655.322 282.693 Output Total 2000 350 95 Balance -1868.142 305.322 187.693 Intake: Intake, IV Titration 131.858 655.322 282.693 Amount Heparin Sod,Pork in 0.45% 111.854 112.493 65.72 NaCl 25,000 unit In 0.45 % NaCl 1 250ml.bag @ 18 UNITS/KG/HR 16.329 mls/hr IV .[id number] [facility] Rx#: [id number] Norepinephrine 4 mg In 254.000 Sodium Chloride 0.9% 250 ml @ 0.03 MCG/KG/MIN 10. 369 mls/hr IV .Q24H [facility] Rx#:[id number] Norepinephrine 4 mg In 172.646 128.879 Sodium Chloride 0.9% 250 ml @ 0.03 MCG/KG/MIN 10. 369 mls/hr IV .Q24H [facility] Rx#:[id number] Vasopressin 60 unit In 47.634 Sodium Chloride 0.9% 150 ml @ 0.03 UNITS/MIN 4.59 mls/hr IV .Q24H [facility] Rx#: [id number] fentaNYL (PF). 1,000 mcg 38.707 In Sodium Chloride 0.9% 80 ml @ 0.5 MCG/KG/HR 4. 536 mls/hr IV .Q22H3M [facility] Rx#:[id number] propofoL 1,000 mg In 20.004 77.476 40.46 Empty Bag 1 bag @ 15 MCG/ KG/MIN 8.165 mls/hr IV . [id number] [facility] Rx#:[id number] Output: Urine 2000 350 95 - Exam GENERAL DESCRIPTION: An elderly female intubated on the vent RESPIRATORY SYSTEM: Unlabored breathing , decreased breath sounds at bases HEART: S1 S2 regular rate and rhythm , ABDOMEN: Soft , no tenderness EXTREMITIES: No edema feet - Labs CBC & Chem 7: 01/15/24 04:54 01/15/24 04:54 Labs: Abnormal Lab Results - Last 24 Hours (Table) 01/14/24 01/14/24 01/14/24 Range/Units 14:03 15:35 16:10 WBC (3.8-10.6) k/uL MCHC (31.0-37.0) g/dL RDW (11.5-15.5) % Plt Count (150-450) k/uL Neutrophils # (1.3-7.7) k/uL Monocytes # (0-1.0) k/uL APTT 148.0 H* (22.0-30.0) sec ABG pH (7.35-7.45) ABG pCO2 (35-45) mmHg ABG pO2 (83-108) mmHg ABG HCO3 (21-25) mmol/L ABG Total CO2 (19-24) mmol/L ABG O2 Saturation (94-97) % Carbon Dioxide (22-30) mmol/L BUN (7-17) mg/dL Creatinine (0.52-1.04) mg/dL Glucose (74-99) mg/dL POC Glucose (mg/dL) 169 H (70-110) mg/dL Plasma Lactic Acid Yunier 3.0 H* (0.7-2.0) mmol/L Calcium (8.4-10.2) mg/dL AST (14-36) U/L Alkaline Phosphatase (38-126) U/L Total Protein (6.3-8.2) g/dL Albumin (3.5-5.0) g/dL 01/14/24 01/14/24 01/14/24 Range/Units 16:35 18:10 21:37 WBC (3.8-10.6) k/uL MCHC (31.0-37.0) g/dL RDW (11.5-15.5) % Plt Count (150-450) k/uL Neutrophils # (1.3-7.7) k/uL Monocytes # (0-1.0) k/uL APTT (22.0-30.0) sec ABG pH 7.32 L (7.35-7.45) ABG pCO2 53 H (35-45) mmHg ABG pO2 348 H (83-108) mmHg ABG HCO3 27 H (21-25) mmol/L ABG Total CO2 29 H (19-24) mmol/L ABG O2 Saturation 100.0 H (94-97) % Carbon Dioxide (22-30) mmol/L BUN (7-17) mg/dL Creatinine (0.52-1.04) mg/dL Glucose (74-99) mg/dL POC Glucose (mg/dL) (70-110) mg/dL Plasma Lactic Acid Yunier 2.9 H* 2.3 H* (0.7-2.0) mmol/L Calcium (8.4-10.2) mg/dL AST (14-36) U/L Alkaline Phosphatase (38-126) U/L Total Protein (6.3-8.2) g/dL Albumin (3.5-5.0) g/dL 01/15/24 01/15/24 01/15/24 Range/Units 01:12 01:12 04:54 WBC 30.7 H (3.8-10.6) k/uL MCHC 30.1 L (31.0-37.0) g/dL RDW 15.7 H (11.5-15.5) % Plt Count 599 H (150-450) k/uL Neutrophils # 28.0 H (1.3-7.7) k/uL Monocytes # 1.1 H (0-1.0) k/uL APTT 148.1 H* (22.0-30.0) sec ABG pH (7.35-7.45) ABG pCO2 (35-45) mmHg ABG pO2 (83-108) mmHg ABG HCO3 (21-25) mmol/L ABG Total CO2 (19-24) mmol/L ABG O2 Saturation (94-97) % Carbon Dioxide (22-30) mmol/L BUN (7-17) mg/dL Creatinine (0.52-1.04) mg/dL Glucose (74-99) mg/dL POC Glucose (mg/dL) (70-110) mg/dL Plasma Lactic Acid Yunier 2.7 H* (0.7-2.0) mmol/L Calcium (8.4-10.2) mg/dL AST (14-36) U/L Alkaline Phosphatase (38-126) U/L Total Protein (6.3-8.2) g/dL Albumin (3.5-5.0) g/dL 01/15/24 01/15/24 01/15/24 Range/Units 04:54 04:54 08:38 WBC (3.8-10.6) k/uL MCHC (31.0-37.0) g/dL RDW (11.5-15.5) % Plt Count (150-450) k/uL Neutrophils # (1.3-7.7) k/uL Monocytes # (0-1.0) k/uL APTT >200.0 H* (22.0-30.0) sec ABG pH (7.35-7.45) ABG pCO2 (35-45) mmHg ABG pO2 (83-108) mmHg ABG HCO3 (21-25) mmol/L ABG Total CO2 (19-24) mmol/L ABG O2 Saturation (94-97) % Carbon Dioxide 21 L (22-30) mmol/L BUN 21 H (7-17) mg/dL Creatinine 1.21 H (0.52-1.04) mg/dL Glucose 143 H (74-99) mg/dL POC Glucose (mg/dL) (70-110) mg/dL Plasma Lactic Acid Yunier 6.7 H* (0.7-2.0) mmol/L Calcium 7.5 L (8.4-10.2) mg/dL AST 59 H (14-36) U/L Alkaline Phosphatase 145 H (38-126) U/L Total Protein 5.8 L (6.3-8.2) g/dL Albumin 2.9 L (3.5-5.0) g/dL 01/15/24 01/15/24 Range/Units 08:38 08:40 WBC (3.8-10.6) k/uL MCHC (31.0-37.0) g/dL RDW (11.5-15.5) % Plt Count (150-450) k/uL Neutrophils # (1.3-7.7) k/uL Monocytes # (0-1.0) k/uL APTT (22.0-30.0) sec ABG pH 7.25 L (7.35-7.45) ABG pCO2 (35-45) mmHg ABG pO2 119 H (83-108) mmHg ABG HCO3 17 L (21-25) mmol/L ABG Total CO2 18 L (19-24) mmol/L ABG O2 Saturation 97.6 H (94-97) % Carbon Dioxide (22-30) mmol/L BUN (7-17) mg/dL Creatinine (0.52-1.04) mg/dL Glucose (74-99) mg/dL POC Glucose (mg/dL) (70-110) mg/dL Plasma Lactic Acid Yunier 9.6 H* (0.7-2.0) mmol/L Calcium (8.4-10.2) mg/dL AST (14-36) U/L Alkaline Phosphatase (38-126) U/L Total Protein (6.3-8.2) g/dL Albumin (3.5-5.0) g/dL Microbiology - Last 24 Hours (Table) 01/14/24 08:15 Urine Culture - Preliminary Urine,Clean Catch Gram Neg Bacilli Assessment and Plan (1) Pneumonia Status: Acute Code(s): J18.9 - PNEUMONIA, UNSPECIFIED ORGANISM SNOMED Code(s): 942653979 (2) Leukocytosis Status: Acute Code(s): D72.829 - ELEVATED WHITE BLOOD CELL COUNT, UNSPECIFIED SNOMED Code(s): 057842063 Plan: 1patient presented to hospital with increasing shortness of breath is likely multifactorial in this patient with underlying COPD patient also have a cough bring up some yellow sputum concerning possible for pneumonia with a CT angiog dominique also showing effusion as well as PE and collapse of the right lower lobe possible mucous plugging with secondary postoperative pneumonia not entirely excluded 2-patient has significant worsening of her clinical condition did have a cardiac arrest requiring intubation now with worsening infiltrate on the right side concerning for aspiration pneumonia we will discontinue Rocephin start the patie nt on Zosyn follow-up on the cultures and adjust antibiotic further on the basis of those culture prognosis guarded Dictation was produced using [employer] dictation software. please excuse any grammatical, word or spelling errors. Time with Patient: Greater than 30
--- NOTE | 2024-01-18 09:42 | P.DS ---
Providers Date of admission: 01/14/24 10:24 Expected date of discharge: 01/15/24 Attending physician: Stew Call MD Consults: 01/14/24 09:06 Consult Physician Urgent Consulting Provider: Freddie Cortez Consult Reason/Comments: COPD exacerbation, pleural effusions, right lower lobe PE Do you want consulting provider notified?: Yes Consult Physician Urgent Consulting Provider: Sandy Dias Consult Reason/Comments: CHF exacerbation Do you want consulting provider notified?: Yes 01/14/24 09:58 Consult Physician Urgent Consulting Provider: Wilfrido Quiles Consult Reason/Comments: wbc, sob, lactic acidosis Do you want consulting provider notified?: Yes Primary care physician: Stated None Hospital Course: Discharge diagnoses; Acute hypoxic respiratory failure Cardiac arrest Bacterial pneumonia Bilateral pleural effusion V. tach Acute COPD exacerbation Acute CHF Lactic acidosis Acute PE Hospital course; patient is 73-year-old lady with past medical history significant for COPD who presented the ER because of shortness of breath and weakness. Patient is very poor historian, apparently patient has been living out of her car in her driveway. Patient is not going to her house and uses her car and the restroom in the yard. Patient states that she has been feeling sick for the last few days. Patient complaining of shortness of breath at rest. Denies any chest pain. There is no complaint of fever or chills. Patient denies any cough. Patient complains of generalized weakness. Denies any nausea, vomit abdominal pain. Because of worsening shortness of breath, EMS was called and patient brought to the ER Initial lab work done in the ER showed WBC 26.3, hemoglobin 12.4, platelet count 599, INR 1.1, D-dimer 4.23, sodium 143, potassium 3.3, carbon dioxide 33, lactate 2.8, AST 23, ALT 9, alk phos 142, proBNP 24 800 UA showed large amount of leukocyte Estrace, urine WBC 17, urine nitrite negative Influenza A not detected Influenza B not detected RSV not detected COVID-19 not detected Chest x-ray done in the ER showed moderate right and small left pleural effusion with adjacent atelectasis or consolidation. Possible CHF with pulm vascular congestion CTA chest done showed a single tiny segmental branch PE. CHF with pulmonary congestion. Collapse the right lower lobe adjacent to the right pleural effusion Moderate to large hiatal hernia involving half of the stomach in the lower chest Patient admitted to internal medicine service 01/14. Patient seen and examined. Labs on this morning showed WBC 30.7, hemoglobin 12.1, platelet count 599, sodium 138, potassium 5, BUN 21, creatinine 1.1, lactate 6.7 bilirubin 1.1. patient intubated yesterday evening after going into qianchengwuyou tach, underwent CPR. Patient had another CODE BLUE called on 01/15/2024 at 1228. Patient was found bradycardic and pulseless, CPR was initiated. No ROSC was achieved. Patient was pronounced at 1241. Dictation was produced using [employer] dictation software. please excuse any grammatical, word or spelling errors. Patient Condition at Discharge: Poor Plan - Discharge Summary New Discharge Prescriptions: No Action No Known Home Medications Discharge Medication List No Known Home Medications 01/14/24 [History] Follow up Appointment(s)/Referral(s): None,Stated [Primary Care Provider] - 1-2 days Discharge Disposition: - Preliminary Cause of Preliminary Cause of : Cardiac arrest, respiratory failure
--- NOTE | 2024-01-29 12:38 | CDI ---
Documentation Clarification Form Date: 01/29/2024 11:02:56 AM From: Rebecca Montgomery Phone: Admit Date: 01/14/2024 10:24:00 AM Patient Name: Janell Victor Visit Number: [id number] Discharge Date: 01/15/2024 12:41:00 PM ATTENTION: The Clinical Documentation Specialists (CDI) and [facility] Coding Staff appreciate your assistance in clarifying documentation. Please respond to the clarification below the line at the bottom and electronically sign. The CDI & [facility] Coding staff will review the response and follow-up if needed. Please note: Queries are made part of the Legal Health Record. If you have any questions, please contact the author of this message via ITS. Doctor/Provider: Stew Call The patient has Sepsis 01/14 progress note. Based on this information and the findings below, is there an additional diagnosis that is clinically appropriate for this patient? History/Risk Factors: COPD, CHF, CAD, current smoker Clinical Indicators: Patient presented on 01/13 for weakness, found to have Acute hypoxic respiratory failure, COPD exacerbation, Pulmonary embolism, Atelectasis, UTI, Bacterial Pneumonia. On 01/14 during Echocardiogram patient went into V-tach and was intubated with mechanical vent. Patient documented to have suffered cardiac arrest. 01/14 IM Progress note: Principal diagnosis - Reason for follow-up is sepsis and pneumonia 01/14 Progress note: Assessment - "Lactic acidosis possibly secondary to hypoxia or septic shock Patient's lactic acid on arrival was 2.8, has increased to 9.6 as of this morning (01/14) - WBCs >30, has been hypotensive 90s/50s and bradycardic in regards to possible septic shock" WBC: 26.3 Lactic acid: 2.8 Glucose: 70 BNP: 24,800 D-dimer: 4.23 Procalcitonin: 0.09 Blood cultures: no growth UA: large amount of leukocyte Estrace, urine WBC 17, urine nitrite negative Vitals signs: 01/13 - Temp 97.5 F, CA 75, RR 17, BP 123/77, O2 Sat 96 01/13 Chest x-ray: moderate right and small left pleural effusions with adjacent atelectasis and/or consolidation 01/[address]: a single tiny segmental branch PE located in the right lower lobe; .CHF with pulmonary vascular congestion (characterized by generalized anasarca, borderline heart size, scattered septal lines and groundglass, as well as moderate right and small left pleural effusions); Collapse of the right lower lobe adjacent to the right pleural effusion. Treatment: ER - 40 mg of IV Lasix, DuoNeb treatment, 1 g of magnesium sulfate, loading dose of 125 mg Solu-Medrol.40 mEq of K-Dur for hypokalemia, started on high intensity heparin protocol for the PE, started on the pneumonia protocol as well with azithromycin and Rocephin 2g IV; 01/14 - Solumedrol 60mg IV Q6hr ID Consult: Yes Antibiotics: azithromycin and Rocephin 2g IV; Rocephin discontinued and started on Zosyn for possible aspiration pneumonia Is there an additional diagnosis that is clinically appropriate for this patient? [ x ] Sepsis, present on admission [ ] Sepsis, developed during stay, not present on admission [ ] Severe Sepsis with organ failure [ ] Septic Shock [ ] Sepsis, ruled out [ ] No additional diagnosis/not clinically significant [ ] Other, please specify [ ] Unable to determine SIRS Criteria: 2 or more of the following may indicate SIRS Temperature < 96.8F (36C) or > 101.0F (38.3C) Heart Rate > 90 bpm Respiratory Rate > 20 breaths/min or PaCO2 < 32 mmHg White Blood Cell Count > 12,000 or < 4,000 cells/mm3 or > 10% bands MTDD
--- NOTE | 2024-02-14 12:40 | CDI ---
Documentation Clarification Form Date: 02/14/2024 11:55:43 AM From: Monica Barth RN, CCDS Phone: [phone] Admit Date: 01/14/2024 10:24:00 AM Patient Name: Janell Victor Visit Number: [id number] Discharge Date: 01/15/2024 12:41:00 PM ATTENTION: The Clinical Documentation Specialists (CDI) and [facility] Coding Staff appreciate your assistance in clarifying documentation. Please respond to the clarification below the line at the bottom and electronically sign. The CDI & [facility] Coding staff will review the response and follow-up if needed. Please note: Queries are made part of the Legal Health Record. If you have any questions, please contact the author of this message via ITS. Doctor Stew Call The patient had the documented diagnosis of unspecified acute CHF throughout the progress notes. Additional information regarding the type of CHF is requested. History/Risk Factors: COPD, smoker. Patient was living out of her car for months in her driveway, too weak to enter her house. Called EMS due to feeling sick and short of breath. Clinical Indicators: 01/13 H&P: "Acute CHF." 01/14 Pulmonary: "proBNP 24,800 in regard to CHF exacerbation." 01/17 Discharge summary: "Acute hypoxic respiratory failure, bacterial pneumonia, acute CHF. Patient had another code blue called on 01/15/2024 at 1228. Patient was found bradycardic and pulseless, CPR was initiated. No ROSC was achieved. Patient was pronounced at 1241." 01/13 BNP: [id number] 01/13 Echocardiogram Results: Patient went into v-tach and was intubated in room. Echo terminated. Moderately to severely impaired left ventricular systolic function with no clear segmental wall motion abnormality. Moderate severe mitral regurgitation. Left ventricular ejection fraction is estimated at 35-40 %. 01/13 Chest X Ray: Moderate right and small left pleural effusions with adjacent atelectasis and/or consolidation. Possible CHF with pulmonary vascular congestion superimposed on COPD. 01/13 Chest CTA: single tiny segmental branch located within the right lower lobe. CHF with pulmonary vascular congestion Treatment: IV Lasix 40mg x1 on 01/13; IV Lasix 40mg daily 01/14; intubation/mechanical ventilation In your professional opinion, can you please clarify the type of CHF if known? [ x ] Acute Systolic Heart Failure (reduced EF) [ ] Acute on Chronic Systolic Heart Failure (reduced EF) [ ] Acute Diastolic Heart Failure (preserved EF) [ ] Acute on Chronic Diastolic Heart Failure (preserved EF) [ ] Acute Systolic & Diastolic Heart Failure [ ] Acute on Chronic Heart Failure Systolic & Diastolic Heart Failure [ ] Other, please specify [ ] Unable to determine MTDD
== END 2024-01-15 12:41 | disposition expired | DRG 871 ==
LOC: EC 05:50 → 3SCARD 10:24 → 2SICU 15:48
PROVIDERS: ADMIT Internal Medicine; ATTEND Internal Medicine
PROC: 5A1935Z Respiratory Ventilation, Less than 24 Consecutive Hours (ICD-10-PCS; principal; 2024-01-14)
PROC: 0BH17EZ Insertion of Endotracheal Airway into Trachea, Via Natural or Artificial Opening (ICD-10-PCS; 2024-01-14)
PROC: 02HV33Z Insertion of Infusion Device into Superior Vena Cava, Percutaneous Approach (ICD-10-PCS; 2024-01-15)
PROC: 03HY32Z Insertion of Monitoring Device into Upper Artery, Percutaneous Approach (ICD-10-PCS; 2024-01-15)
PROC: 4A133B1 Monitoring of Arterial Pressure, Peripheral, Percutaneous Approach (ICD-10-PCS; 2024-01-15)
PROC: 4A133J1 Monitoring of Arterial Pulse, Peripheral, Percutaneous Approach (ICD-10-PCS; 2024-01-15)
PROC: 3E033XZ Introduction of Vasopressor into Peripheral Vein, Percutaneous Approach (ICD-10-PCS; 2024-01-15)
DX: A41.9 Sepsis, unspecified organism (principal); I26.99 Other pulmonary embolism without acute cor pulmonale; J96.01 Acute respiratory failure with hypoxia; J15.9 Unspecified bacterial pneumonia; I50.21 Acute systolic (congestive) heart failure; J44.1 Chronic obstructive pulmonary disease with (acute) exacerbation; J98.11 Atelectasis; N39.0 Urinary tract infection, site not specified; E87.20 Acidosis, unspecified; J98.19 Other pulmonary collapse; I47.20 Ventricular tachycardia, unspecified; J44.0 Chronic obstructive pulmonary disease with (acute) lower respiratory infection; I46.9 Cardiac arrest, cause unspecified; F17.200 Nicotine dependence, unspecified, uncomplicated; I25.10 Atherosclerotic heart disease of native coronary artery without angina pectoris; E87.6 Hypokalemia; E16.2 Hypoglycemia, unspecified; I87.8 Other specified disorders of veins; K44.9 Diaphragmatic hernia without obstruction or gangrene; T50.916A Underdosing of multiple unspecified drugs, medicaments and biological substances, initial encounter; Z88.5 Allergy status to narcotic agent; Z91.148 Patient's other noncompliance with medication regimen for other reason; Z91.199 Patient's noncompliance with other medical treatment and regimen due to unspecified reason; Z59.89 Other problems related to housing and economic circumstances
CPT/HCPCS: 36415; 36600; 71045; 71046; 71275; 80053; 81001; 82550; 82805; 83605; 83735; 83880; 84132; 84145; 84484; 85025; 85379; 85610; 85730; 86140; 87040; 87070; 87077; 87086; 87186; 87205; 87449; 87636; 92950; 93005; 93306; 93970; 94002; 94003; 94640; 94760; 96365; 96367; 96374; 99291